=== PATIENT | female | born 1955 | race Caucasian/White ===

== ENCOUNTER 2016-04-09 18:06 | Inpatient (IN) | payer OTHER ==
[~2016-04-09] VITALS: Ht 167.6 cm; Wt 65.0 kg
[2016-04-09 18:22] VITALS: BP 174/83; PULSE 78; RESP 18; O2SAT 98
[2016-04-09] MEDS ORDERED: SODIUM CHLOR 0.9% 1000 ML INJ 1,000 ML IV SCH ×2 (18:43→20:26)
--- NOTE | 2016-04-09 18:44 | PD ---
HPI Chief Complaint: Abdominal Pain Time Seen by Provider: 18:44 Travel History International Travel<30 days: No Contact w/Intl Traveler<30days: No Traveled to known affect area: No History of Present Illness HPI 60-year-old female with a history of hypertension presents to the emergency department for evaluation of epigastric pain, nausea and vomiting. The patient states that she's had dull intermittent epigastric pain for 2 weeks. States that the pain is worse at night and wakes her up. States that over the past week she's had nausea. States that today after lunch she had 2 episodes of nonbloody nonbilious emesis. She denies any fever, chills, chest pain, shortness of breath, cough or cold symptoms, diarrhea, constipation, bloody stool, dysuria. She also complains of feeling bloated. States that she had similar symptoms a few years ago with bloating and was seen by [facility] who did EGD and colonoscopy that were unremarkable. Drinks alcohol occasionally. No other complaints. Prior abdominal surgeries include left oophorectomy. PFSH Past Medical History Genitourinary: Yes (Ovary removed , Tubal lit in the 1979) Kidney Stones: Yes (Lithotripsy 2013) Influenza Vaccination: Yes ?: Not : 2 Para: 2 Tubal Ligation: Yes Past Surgical History Section: No Social History Alcohol Use: Yes (rarely) Tobacco Use: No Substance Use: No Allergies-Medications (Allergen,Severity, Reaction): Coded Allergies: No Known Allergies (Unverified , 04/09/16) Reported Meds & Prescriptions Reported Meds & Active Scripts Active Review of Systems Except as stated in HPI: all other systems reviewed are Neg Physical Exam Narrative GENERAL: Well-nourished and well-developed pleasant patient in no acute distress who is nontoxic appearing. SKIN: Warm and dry. HEAD: Normocephalic and atraumatic. EYES: No injection, drainage, or hyphema noted. PERRLA. EOMI. ENT: No nasal drainage noted. Oropharynx is clear. NECK: Supple and the trachea is midline. CARDIOVASCULAR: Regular rate and rhythm. RESPIRATORY: Breath sounds are equal bilaterally with no accessory muscle use, wheezing, rhonchi, or crackles. GASTROINTESTINAL: Mild epigastric tenderness to palpation. Negative Smith's sign. Negative McBurney's point. No rebound tenderness or guarding. Abdomen is soft and nondistended. MUSCULOSKELETAL: No obvious deformities, swelling, cyanosis, or ecchymosis is present throughout the upper and lower extremities. Patient has full range of motion without any signs of neurovascular compromise. NEUROLOGICAL: Awake, alert, and oriented. Normal speech and gait. Cranial nerves are grossly intact. Data Data Last Documented VS Vital Signs Date Time Temp Pulse Resp B/P Pulse Ox O2 Delivery O2 Flow Rate FiO2 04/09/16 20:22 79 18 154/80 94 Room Air Orders Complete Blood Count With Diff (04/09/16 18:43) Comprehensive Metabolic Panel (04/09/16 18:43) Lipase (04/09/16 18:43) Urinalysis - C+S If Indicated (04/09/16 18:43) Us Abdomen Gallbladder (04/09/16 ) Iv Access Insert/Monitor (04/09/16 18:43) Ecg Monitoring (04/09/16 18:43) Oximetry (04/09/16 18:43) Ondansetron Inj (Zofran Inj) (04/09/16 18:45) Sodium Chlor 0.9% 1000 Ml Inj (Ns 1000 M (04/09/16 18:43) Sodium Chloride 0.9% Flush (Ns Flush) (04/09/16 18:45) Electrocardiogram (04/09/16 18:43) Famotidine Inj (Pepcid Inj) (04/09/16 18:45) Urine Culture (04/09/16 19:00) Ct Abd/Pel W Iv Contrast(Rout) (04/09/16 20:26) Sodium Chlor 0.9% 1000 Ml Inj (Ns 1000 M (04/09/16 20:26) Ampicillin-Sulbactam Inj (Unasyn Inj) (04/09/16 20:30) Admit Order (Ed Use Only) (04/09/16 20:44) Labs Laboratory Tests Test 04/09/16 19:00 White Blood Count 6.1 TH/MM3 Red Blood Count 4.46 MIL/MM3 Hemoglobin 13.9 GM/DL Hematocrit 40.8 % Mean Corpuscular Volume 91.4 FL Mean Corpuscular Hemoglobin 31.2 PG Mean Corpuscular Hemoglobin 34.1 % Concent Red Cell Distribution Width 13.5 % Platelet Count 283 TH/MM3 Mean Platelet Volume 9.4 FL Neutrophils (%) (Auto) 60.7 % Lymphocytes (%) (Auto) 31.7 % Monocytes (%) (Auto) 6.4 % Eosinophils (%) (Auto) 0.6 % Basophils (%) (Auto) 0.6 % Neutrophils # (Auto) 3.7 TH/MM3 Lymphocytes # (Auto) 1.9 TH/MM3 Monocytes # (Auto) 0.4 TH/MM3 Eosinophils # (Auto) 0.0 TH/MM3 Basophils # (Auto) 0.0 TH/MM3 CBC Comment DIFF FINAL Differential Comment Urine Color YELLOW Urine Turbidity HAZY Urine pH 5.0 Urine Specific Orange 1.020 Urine Protein TRACE mg/dL Urine Glucose (UA) NEG mg/dL Urine Ketones NEG mg/dL Urine Occult Blood MOD Urine Nitrite POS Urine Bilirubin NEGATIVE Urine Leukocyte Esterase LARGE Urine RBC 6 /hpf Urine WBC 101 /hpf Urine Squamous Epithelial 18 /hpf Cells Urine Bacteria RARE /hpf Urine Mucus FEW /lpf Microscopic Urinalysis Comment CULTURE INDICATED Sodium Level 141 MEQ/L Potassium Level 3.6 MEQ/L Chloride Level 107 MEQ/L Carbon Dioxide Level 24.6 MEQ/L Anion Gap 9 MEQ/L Blood Urea Nitrogen 14 MG/DL Creatinine 0.77 MG/DL Estimat Glomerular Filtration 76 ML/MIN Rate Random Glucose 96 MG/DL Calcium Level 8.6 MG/DL Total Bilirubin 2.7 MG/DL Aspartate Amino Transf 318 U/L (AST/SGOT) Alanine Aminotransferase 497 U/L (ALT/SGPT) Alkaline Phosphatase 760 U/L Total Protein 7.0 GM/DL Albumin 3.6 GM/DL Triglycerides Level 58 MG/DL Lipase 6053 U/L [facility] Medical Decision Making Medical Screen Exam Complete: Yes Emergency Medical Condition: Yes Differential Diagnosis Gastritis versus PUD versus GERD versus cholelithiasis versus cholecystitis versus pancreatitis Narrative Course 60-year-old female presents to the emergency department for evaluation of epigastric pain, nausea, vomiting and bloating. Patient is afebrile, vital signs are stable. She has some mild epigastric tenderness to palpation but no peritoneal signs. IV access is obtained, labs are been drawn and sent. Gallbladder ultrasound has been ordered and is pending. Patient is administered IV fluids, Zofran and Pepcid. EKG shows sinus rhythm 76 bpm, no ST elevations or depressions. CBC is unremarkable. CMP shows elevated total bilirubin of 2.7 with elevated LFTs. Lipase is elevated at 6503. Urinalysis is positive for moderate occult blood, nitrites, large leukocyte esterase, 6 red blood cells, 101 white blood cells, rare bacteria, few mucus. This consistent with urinary tract infection. Ultrasound shows mild pancreatic and common bile duct dilation with gallbladder sludge without wall thickening or pericholecystic fluid. CT of the abdomen and pelvis with IV contrast shows 2.8 cm mass in the head of the pancreas with associated dilation of the pancreatic duct, intrahepatic biliary tree and common bile duct. This is concerning for pancreatic carcinoma and total proven otherwise. Patient has remained stable and without complaint. My attending physician Dr. Chris and I did discuss all results with the patient. She will be admitted for further evaluation of this mass. Physician Communication Physician Communication I spoke with Matheus CASTRO for [facility] who agrees to admit the patient to Dr. Meyer's service. Diagnosis Primary Impression: Mass of pancreas Additional Impression: Nausea & vomiting Qualified Code: R11.2 - Non-intractable vomiting with nausea, unspecified vomiting type Admitting Information Admitting Physician Requests: Admit Smita Green Apr 09, 2016 18:44
[2016-04-09] MEDS ORDERED: SODIUM CHLORIDE 0.9% FLUSH 5 ML FLUSH IVF PRN (18:45)
[2016-04-09] MEDS ORDERED: FAMOTIDINE 20 MG/2 ML VIAL IV PUSH ONE (18:45)
[2016-04-09] MEDS ORDERED: ONDANSETRON HCL 4 MG/2 ML VIAL IVP ONE (18:45)
[2016-04-09 19:20] LABS: AUTOMATED NEUTROPHIL # 3.7 TH/MM3 (1.8-7.7); BACTERIA, URINE RARE /hpf; BASOPHIL % 0.6 % (0.0-2.0); COMMENT (UR) CULTURE INDICATED; CULTURE IF INDICATED CULTURE INDICATED; EOSINOPHIL % 0.6 % (0.0-4.0); HEMATOCRIT 40.8 % (35.0-46.0); HEMO FLAGS DIFF FINAL; LYMPH % 31.7 % (9.0-44.0); LYMPHOCYTE # 1.9 TH/MM3 (1.0-4.8); MEAN CELL VOLUME 91.4 FL (80.0-100.0); MEAN CORPUSCULAR HEMOGLOBIN 31.2 PG (27.0-34.0); MEAN CORPUSCULAR HGB CONC 34.1 % (32.0-36.0); MONO % 6.4 % (0.0-8.0); MUCUS URINE FEW /lpf (OCC); NEUT % 60.7 % (16.0-70.0); PLATELET COUNT 283 TH/MM3 (150-450); RED BLOOD COUNT 4.46 MIL/MM3 (4.00-5.30); RED CELL DISTRIBUTION WIDTH 13.5 % (11.6-17.2); SQUAMOUS EPITHELIAL CELL URINE 18 /hpf (0-5); WHITE BLOOD COUNT 6.1 TH/MM3 (4.0-11.0)
[2016-04-09 19:21] LABS: URINE COLOR YELLOW (YELLW/STRAW)
[2016-04-09 19:22] LABS: GLUCOSE,URINE NEG (NEG); KETONE, URINE NEG (NEG)
[2016-04-09 19:23] LABS: BLOOD, URINE MOD (NEG); NITRITE,URINE POS (NEG)
--- NOTE | 2016-04-09 19:46 | RADRPT ---
EXAM DATE/TIME: 04/09/2016 19:05 [facility] COMPARISON: No previous studies available for comparison. INDICATIONS : Right upper quadrant pain. MEDICAL HISTORY : . SURGICAL HISTORY : Tubal ligation. Lithotripsy. Oophorectomy. ENCOUNTER: Initial ACUITY: 2 weeks PAIN SCORE: 2/10 LOCATION: Right upper quadrant MEASUREMENTS: LIVER: 16.1 cm length COMMON DUCT: 8 mm RIGHT KIDNEY: 10.2 x 5.9 x 4.6 cm FINDINGS: LIVER: Normal echotexture without focal lesion or ductal dilatation. COMMON DUCT: No intraluminal mass or stone visualized. GALLBLADDER: The gallbladder is filled with sludge. Wall thickness upper limits normal at 2.9 mm. No pericholecyst ic fluid. Negative sonographic Smith's sign. PANCREAS: Mild prominence of the pancreatic duct up to 4.3 mm. RIGHT KIDNEY: No evidence of hydronephrosis, stone, or mass. CONCLUSION: 1. Mild pancreatic and common bile duct dilatation. 2. Gallbladder sludge without wall thickening or pericholecystic fluid. Yemi Daley MD on April 09, 2016 at 19:43 Board Certified Radiologist. This report was verified electronically.
[2016-04-09 19:52] VITALS: BP 163/79; PULSE 80; RESP 18; O2SAT 95
[2016-04-09 20:10] LABS: ALKALINE PHOSPHATASE 760 U/L (45-117); ALT (GPT) 497 U/L (10-53); ANION GAP 9 MEQ/L (5-15); AST (GOT) 318 U/L (15-37); BICARBONATE 24.6 MEQ/L (21.0-32.0); BLOOD UREA NITROGEN 14 MG/DL (7-18); CHLORIDE 107 MEQ/L (98-107); GLOMERULAR FILTRATION RATE 76 ML/MIN (>89); POTASSIUM 3.6 MEQ/L (3.5-5.1); SODIUM (NA) 141 MEQ/L (136-145); TOTAL BILIRUBIN ADULT 2.7 MG/DL (0.2-1.0)
[2016-04-09 20:22] VITALS: BP 154/80; PULSE 79; RESP 18; O2SAT 94
[2016-04-09] MEDS ORDERED: AMPICILLIN-SULBACTAM INJ 3 GM in SODIUM CHLORIDE 0.9% INJ 100 ML IV ONE (20:30)
[2016-04-09] MEDS ORDERED: SODIUM CHLORIDE 0.9% FLUSH 5 ML FLUSH IV PRN (20:45)
[2016-04-09] MEDS ORDERED: ONDANSETRON HCL 4 MG/2 ML VIAL IV PRN (20:45)
--- NOTE | 2016-04-09 20:45 | PD ---
Data Data Last Documented VS Vital Signs Date Time Temp Pulse Resp B/P Pulse Ox O2 Delivery O2 Flow Rate FiO2 04/09/16 20:22 79 18 154/80 94 Room Air Orders Complete Blood Count With Diff (04/09/16 18:43) Comprehensive Metabolic Panel (04/09/16 18:43) Lipase (04/09/16 18:43) Urinalysis - C+S If Indicated (04/09/16 18:43) Us Abdomen Gallbladder (04/09/16 ) Iv Access Insert/Monitor (04/09/16 18:43) Ecg Monitoring (04/09/16 18:43) Oximetry (04/09/16 18:43) Ondansetron Inj (Zofran Inj) (04/09/16 18:45) Sodium Chlor 0.9% 1000 Ml Inj (Ns 1000 M (04/09/16 18:43) Sodium Chloride 0.9% Flush (Ns Flush) (04/09/16 18:45) Electrocardiogram (04/09/16 18:43) Famotidine Inj (Pepcid Inj) (04/09/16 18:45) Urine Culture (04/09/16 19:00) Ct Abd/Pel W Iv Contrast(Rout) (04/09/16 20:26) Sodium Chlor 0.9% 1000 Ml Inj (Ns 1000 M (04/09/16 20:26) Ampicillin-Sulbactam Inj (Unasyn Inj) (04/09/16 20:30) Admit Order (Ed Use Only) (04/09/16 20:44) Labs Laboratory Tests Test 04/09/16 19:00 White Blood Count 6.1 TH/MM3 Red Blood Count 4.46 MIL/MM3 Hemoglobin 13.9 GM/DL Hematocrit 40.8 % Mean Corpuscular Volume 91.4 FL Mean Corpuscular Hemoglobin 31.2 PG Mean Corpuscular Hemoglobin 34.1 % Concent Red Cell Distribution Width 13.5 % Platelet Count 283 TH/MM3 Mean Platelet Volume 9.4 FL Neutrophils (%) (Auto) 60.7 % Lymphocytes (%) (Auto) 31.7 % Monocytes (%) (Auto) 6.4 % Eosinophils (%) (Auto) 0.6 % Basophils (%) (Auto) 0.6 % Neutrophils # (Auto) 3.7 TH/MM3 Lymphocytes # (Auto) 1.9 TH/MM3 Monocytes # (Auto) 0.4 TH/MM3 Eosinophils # (Auto) 0.0 TH/MM3 Basophils # (Auto) 0.0 TH/MM3 CBC Comment DIFF FINAL Differential Comment Urine Color YELLOW Urine Turbidity HAZY Urine pH 5.0 Urine Specific Bailey 1.020 Urine Protein TRACE mg/dL Urine Glucose (UA) NEG mg/dL Urine Ketones NEG mg/dL Urine Occult Blood MOD Urine Nitrite POS Urine Bilirubin NEGATIVE Urine Leukocyte Esterase LARGE Urine RBC 6 /hpf Urine WBC 101 /hpf Urine Squamous Epithelial 18 /hpf Cells Urine Bacteria RARE /hpf Urine Mucus FEW /lpf Microscopic Urinalysis Comment CULTURE INDICATED Sodium Level 141 MEQ/L Potassium Level 3.6 MEQ/L Chloride Level 107 MEQ/L Carbon Dioxide Level 24.6 MEQ/L Anion Gap 9 MEQ/L Blood Urea Nitrogen 14 MG/DL Creatinine 0.77 MG/DL Estimat Glomerular Filtration 76 ML/MIN Rate Random Glucose 96 MG/DL Calcium Level 8.6 MG/DL Total Bilirubin 2.7 MG/DL Aspartate Amino Transf 318 U/L (AST/SGOT) Alanine Aminotransferase 497 U/L (ALT/SGPT) Alkaline Phosphatase 760 U/L Total Protein 7.0 GM/DL Albumin 3.6 GM/DL Triglycerides Level 58 MG/DL Lipase 6053 U/L MDM Supervised Visit with [facility]: Yes Interpretation(s) EKG shows sinus rhythm at a rate of 76, normal intervals and no concerning ST T changes. This normal EKG. Narrative Course I, Dr. Chris, have reviewed the advance practice practitioner's documentation and am in agreement, met with the patient face to face, made the diagnosis, and the medical decision making was done by me. *My assessment and Findings: Patient seen in by me in addition to Nathalie CASTRO. Patient 6-year-old female presents with epigastric pain. She feels very comfortable on my initial evaluation states her pain is growing. She has had some nausea and vomiting. She had an ultrasound of her right upper quadrant which suggest obstructive pathology to her pancreatitis and I recommended that the patient have a CAT scan to rule out obstructive mass. Unfortunately the patient does have a 2.5 cm mass at the head of her pancreas could represent pancreatic cancer. No obvious lymphadenopathy seen by me. I did deliver the news to the patient and she is initially accepting. Patient was discussed with Matheus CASTRO of the admitting service. Diagnosis Primary Impression: Pancreatitis Qualified Code: K85.10 - Acute biliary pancreatitis without infection or necrosis Additional Impression: Pancreatic mass Admitting Information Admitting Physician Requests: Admit Condition: Stable Alberto Chris MD Apr 09, 2016 20:45
[2016-04-09] MEDS ORDERED: IOHEXOL 350 MG/ML 10 ML VIAL (for RAD DIAG) IV ONE (20:57)
[2016-04-09] MEDS ORDERED: AMPICILLIN-SULBACTAM INJ 3 GM VIAL IM SCH (21:00)
[2016-04-09] MEDS: SODIUM CHLORIDE 0.9% FLUSH 5 ML FLUSH IV SCH (21:00)
[2016-04-09] MEDS: FAMOTIDINE 20 MG/2 ML VIAL IV PUSH SCH (21:00)
[2016-04-09] MEDS ORDERED: MORPHINE SULFATE 4 MG/ML INJ IV PRN ×2 (21:00)
[2016-04-09] MEDS: ENOXAPARIN SODIUM 40 MG/0.4 ML SYRINGE SQ SCH (21:13)
--- NOTE | 2016-04-09 21:13 | RADRPT ---
EXAM DATE/TIME: 04/09/2016 20:52 [facility] COMPARISON: US ABDOMEN - GALLBLADDER, April 09, 2016, 19:05. INDICATIONS : Epigastric pain radiating to back with nausea, vomiting and diarrhea. IV CONTRAST: 95 cc Omnipaque 350 (iohexol) IV ORAL CONTRAST: No oral contrast ingested. RADIATION DOSE: 5.86 CTDIvol (mGy) MEDICAL HISTORY : Renal calculi. SURGICAL HISTORY : Tubal ligation. Lithotripsy. ENCOUNTER: Initial ACUITY: 3 weeks PAIN SCALE: 6/10 LOCATION: medial abdomen TECHNIQUE: Volumetric scanning of the abdomen and pelvis was performed. Using automated exposure control and ad justment of the mA and/or kV according to patient size, radiation dose was kept as low as reasonably achievable to obtain optimal diagnostic quality images. FINDINGS: Bilateral breast implants. The gallbladder is mildly distended and there is prominence of the intrahe patic and extrahepatic ducts, common duct measuring up to 9.3 mm. Pancreatic duct is mildly prominent up to 3.5 mm. There is a heterogeneous enhancing soft tissue mass measuring 2.8 x 2.1 cm in transver se and AP dimension on image 31 at the head of the pancreas. This is best seen on axial image 31. The spleen, left kidney, bilateral adrenal glands are normal. There is a nonobstructing calculus upper p ole right kidney no 4.7 mm on image 18. Mild scarring right mid pole and lower pole kidney. Atheroscl erotic calcifications of the aorta are present. No aneurysm. Urinary bladder, uterus and adnexal huey ons are unremarkable. There is diverticulosis of the sigmoid colon without diverticulitis. Stomach un remarkable. There is no lymphadenopathy. The osseous structures are intact. Lung bases are clear. CONCLUSION: 1. 2.8 cm mass at the head of the pancreas with associated dilatation of the pancreatic duct, intrahe patic biliary tree and common bile duct. This is concerning for pancreatic carcinoma until proven oth erwise. 2. Nonobstructing right upper pole renal calculus. 3. Diverticulosis without diverticulitis. Yemi Daley MD on April 09, 2016 at 21:08 Board Certified Radiologist. This report was verified electronically.
[2016-04-09 21:21] VITALS: BP 154/80; PULSE 91; RESP 18; O2SAT 95
[2016-04-09] MEDS ORDERED: PROMETHAZINE INJ 25 MG/ML VIAL IM ONE (21:30)
[2016-04-09 22:19] VITALS: BP 170/81
[2016-04-10] VITALS: BP 137/64; PULSE 83; TEMP 98.3; O2SAT 93
[2016-04-10] MEDS: AMPICILLIN/SULBAC 3 GM/NS 100 ML IV SCH ×4 (03:35→09:23)
[2016-04-10 04:16] VITALS: BP 135/71; PULSE 66; O2SAT 95
[2016-04-10 05:43] LABS: BICARBONATE 23.6 MEQ/L (21.0-32.0); POTASSIUM 4.1 MEQ/L (3.5-5.1)
[2016-04-10 07:48] VITALS: BP 141/75; PULSE 72; RESP 18; TEMP 98.5; O2SAT 96
--- NOTE | 2016-04-10 07:55 | HHI.HP ---
HPI Service [facility] Primary Care Physician Curtis Santana MD Admission Diagnosis Acute Nonalcoholic Pancreatitis Diagnoses: Chief Complaint: abd. pain, n/v (Yvonne Sepulveda) Travel History International Travel<30 Days: No Contact w/Intl Traveler <30 Da: No Traveled to Known Affected Are: No (Yvonne Sepulveda) History of Present Illness This is a pleasant 60-year-old female who is generally in good health, history of hypertension. Patient presented to the emergency room for evaluation of epigastric pain, nausea vomiting. According to the patient, she's had intermittent epigastric discomfort that is dull and nagging for the last 3 weeks. Over the last couple days she's had nausea and vomiting after meals, sometimes it happens after 1 hour. Denies any fever, no chills. No hematemesis. Bowel movements have been regular, no blood has been noted. Has been trying to lose weight on purpose. She denies any other symptoms, no chest pain, no shortness of breath. She has seen gastroenterology in the past for bloating and had EGD and colonoscopy per Dr. Heath that was unremarkable, possibly some diverticulosis. Does not drink any excessive alcohol. Had prior left oophorectomy. Patient was evaluated in the emergency room, she was noted with elevated LFTs, AST 318, a T4 97, alkaline phosphatase and 60. Lipase was 6053. A CT of the abdomen was completed showing a 2.8 cm mass at the head of pancreas with associated dilatation of the pancreatic duct, intrahepatic biliary tree and common bile duct. This concerning for pancreatic carcinoma. There was also nonobstructive right upper pole renal calculus. Last Impressions Abdomen/Pelvis CT 04/09/162025 Signed Impressions: Service Date/Time: Saturday, April 09, 2016 20:52 - CONCLUSION: 1. 2.8 cm mass at the head of the pancreas with associated dilatation of the pancreatic duct, intrahepatic biliary tree and common bile duct. This is concerning for pancreatic carcinoma until proven otherwise. 2. Nonobstructing right upper pole renal calculus. 3. Diverticulosis without diverticulitis. Yemi Daley MD Gall Bladder Ultrasound 04/09/16 0000 Signed Impressions: Service Date/Time: Saturday, April 09, 2016 19:05 - CONCLUSION: 1. Mild pancreatic and common bile duct dilatation. 2. Gallbladder sludge without wall thickening or pericholecystic fluid. Yemi Daley MD Was also noted positive for UTI. Patient was given empiric antibiotics. Request was made for admission. Patient indicates abdominal discomfort is improved since admission. No further nausea vomiting. Patient denies any history of malignancy on her family. 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 Patient is admitted for further evaluation and treatment. (Yvonne Sepulveda) Review of Systems Constitutional: COMPLAINS OF: Change in appetite, DENIES: Diaphoretic episodes , Fatigue, Fever, Weight gain, Weight loss, Chills, Dizziness, Night Sweats Endocrine: DENIES: Abnorml menstrual pattern, Heat/cold intolerance, Polydipsia , Polyuria, Polyphagia Eyes: DENIES: Blurred vision, Diplopia, Eye inflammation, Eye pain, Vision loss , Photosensitivity, Double Vision Ears, nose, mouth, throat: DENIES: Tinnitus, Hearing loss, Vertigo, Nasal discharge, Oral lesions, Throat pain, Hoarseness, Ear Pain, Running Nose, Epistaxis, Sinus Pain, Toothache, Odynophagia Respiratory: DENIES: Apneas, Cough, Snoring, Wheezing, Hemoptysis, Sputum production, Shortness of breath Cardiovascular: DENIES: Chest pain, Palpitations, Syncope, Dyspnea on Exertion , PND, Lower Extremity Edema, Orthopnea, Claudication Gastrointestinal: COMPLAINS OF: Abdominal pain, Nausea, Vomiting, DENIES: Black stools, Bloody stools, Constipation, Diarrhea, Difficulty Swallowing, Anorexia Genitourinary: DENIES: Abnormal vaginal bleeding, Dysmenorrhea, Dyspareunia, Sexual dysfunction, Urinary frequency, Urinary incontinence, Urgency, Hematuria , Dysuria, Nocturia, Vaginal discharge Musculoskeletal: DENIES: Joint pain, Muscle aches, Stiffness, Joint Swelling, Back pain, Neck pain Integumentary: DENIES: Abnormal pigmentation, Pruritus, Rash, Nail changes, Breast masses, Breast skin changes, Nipple discharge Hematologic/lymphatic: DENIES: Bruising, Lymphadenopathy Immunologic/allergic: DENIES: Eczema, Urticaria Neurologic: DENIES: Abnormal gait, Headache, Localized weakness, Paresthesias, Seizures, Speech Problems, Tremor, Poor Balance Psychiatric: DENIES: Anxiety, Confusion, Mood changes, Depression, Hallucinations, Agitation, Suicidal Ideation, Homicidal Ideation, Delusions ( Yvonne Sepulveda) Past Family Social History Past Medical History Hypertension kidney stones Past Surgical History Oophrectomy in 2014 Ovary removal 1990s Tubal ligation 1979 Reported Medications Reported Meds & Active Scripts Active (Yvnone Sepulveda) Allergies: Coded Allergies: No Known Allergies (Unverified , 04/09/16) Active Ordered Medications Inpatient Medications Ampicillin Sodium/ Sulbactam Sodium (Unasyn Inj) 3 gm Q6H IM ; Start 04/09/16 at 21:00; Stop 04/09/16 at 21:29; Status DC Ampicillin Sodium/ Sulbactam Sodium/ Sodium Chloride (Unasyn Inj/NS Inj) 100 ml @ 200 mls/hr Q6H IV Last administered on 04/10/16 03:35; Start 04/10/16 at 03: 00 Enoxaparin Sodium (Lovenox Inj) 40 mg Q24H SQ Last administered on 04/09/16 21: 13; Start 04/09/16 at 21:00 Famotidine (Pepcid Inj) 20 mg Q12H IV PUSH ; Start 04/09/16 at 21:00 Famotidine 20 mg 20 mg ONCE ONCE IV PUSH Last administered on 04/09/16 18:59; Start 04/09/16 at 18:45; Stop 04/09/16 at 18:46; Status DC IV Flush (NS Flush) 2 ml BID IV Last administered on 04/09/16 21:00; Start 04/09 at 21:00 Morphine Sulfate (Morphine Inj) 4 mg Q3H PRN IV Pain 6-10;if unable to take PO ; Start 04/09/16 at 21:00 Ondansetron HCl (Zofran Inj) 4 mg Q6H PRN IV NAUSEA OR VOMITING Last administered on 04/09/16 21:20; Start 04/09/16 at 20:45 Promethazine HCl 12.5 mg 12.5 mg ONCE ONCE IM Last administered on 04/09/16 22 :18; Start 04/09/16 at 21:30; Stop 04/09/16 at 21:32; Status DC Sodium Chloride (NS 1000 ml Inj) 1,000 ml @ 1,000 mls/hr Q1H IV Last administered on 04/09/16 21:14; Start 04/09/16 at 20:26; Stop 04/09/16 at 21:25; Status DC Family History Mother alive and well, history of arthritis Father from complication of paralysis Has a sister, alive and well Social History Patient is a nurse, 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 SKIN: No rashes, ecchymoses or lesions. Cool and dry. HEAD: Atraumatic. Normocephalic. No temporal or scalp tenderness. EYES: Pupils equal round and reactive. Extraocular motions intact. No scleral icterus. No injection or drainage. ENT: Nose without bleeding, purulent drainage or septal hematoma. Throat without erythema, tonsillar hypertrophy or exudate. Uvula midline. Airway patent. NECK: Trachea midline. No JVD or lymphadenopathy. Supple, nontender, no meningeal signs. CARDIOVASCULAR: Regular rate and rhythm without murmurs, gallops, or rubs. RESPIRATORY: Clear to auscultation. Breath sounds equal bilaterally. No wheezes , rales, or rhonchi. GASTROINTESTINAL: Abdomen soft, non-tender, nondistended. No hepato-splenomegaly , or palpable masses. No guarding. MUSCULOSKELETAL: Extremities without clubbing, cyanosis, or edema. No joint tenderness, effusion, or edema noted. No calf tenderness. Negative Homans sign bilaterally. NEUROLOGICAL: Awake and alert. Cranial nerves II through XII intact. Motor and sensory grossly within normal limits. Five out of 5 muscle strength in all muscle groups. Normal speech. Laboratory Laboratory Tests Test 04/09/16 04/10/16 19:00 04:49 White Blood Count 6.1 Red Blood Count 4.46 Hemoglobin 13.9 Hematocrit 40.8 Mean Corpuscular Volume 91.4 Mean Corpuscular Hemoglobin 31.2 Mean Corpuscular Hemoglobin 34.1 Concent Red Cell Distribution Width 13.5 Platelet Count 283 Mean Platelet Volume 9.4 Neutrophils (%) (Auto) 60.7 Lymphocytes (%) (Auto) 31.7 Monocytes (%) (Auto) 6.4 Eosinophils (%) (Auto) 0.6 Basophils (%) (Auto) 0.6 Neutrophils # (Auto) 3.7 Lymphocytes # (Auto) 1.9 Monocytes # (Auto) 0.4 Eosinophils # (Auto) 0.0 Basophils # (Auto) 0.0 CBC Comment DIFF FINAL Differential Comment Urine Color YELLOW Urine Turbidity HAZY Urine pH 5.0 Urine Specific [place] 1.020 Urine Protein TRACE Urine Glucose (UA) NEG Urine Ketones NEG Urine Occult Blood MOD Urine Nitrite POS Urine Bilirubin NEGATIVE Urine Leukocyte Esterase LARGE Urine RBC 6 Urine WBC 101 Urine Squamous Epithelial 18 Cells Urine Bacteria RARE Urine Mucus FEW Microscopic Urinalysis Comment CULTURE INDICATED Sodium Level 141 146 Potassium Level 3.6 4.1 Chloride Level 107 114 Carbon Dioxide Level 24.6 23.6 Anion Gap 9 8 Blood Urea Nitrogen 14 9 Creatinine 0.77 0.68 Estimat Glomerular Filtration 76 88 Rate Random Glucose 96 94 Calcium Level 8.6 8.2 Total Bilirubin 2.7 Aspartate Amino Transf 318 (AST/SGOT) Alanine Aminotransferase 497 (ALT/SGPT) Alkaline Phosphatase 760 Total Protein 7.0 Albumin 3.6 Triglycerides Level 58 Lipase 6053 4578 Date/Time Procedure Status Source Growth 04/09/16 19:00 Urine Culture Received Urine Clean Catch Pending (Yvonne Sepulveda) Result Diagram: 04/09/16 1900 04/10/169 Imaging Last Impressions Abdomen/Pelvis CT 04/09/162025 Signed Impressions: Service Date/Time: Saturday, April 09, 2016 20:52 - CONCLUSION: 1. 2.8 cm mass at the head of the pancreas with associated dilatation of the pancreatic duct, intrahepatic biliary tree and common bile duct. This is concerning for pancreatic carcinoma until proven otherwise. 2. Nonobstructing right upper pole renal calculus. 3. Diverticulosis without diverticulitis. Yemi Daley MD Gall Bladder Ultrasound 04/09/16 0000 Signed Impressions: Service Date/Time: Saturday, April 09, 2016 19:05 - CONCLUSION: 1. Mild pancreatic and common bile duct dilatation. 2. Gallbladder sludge without wall thickening or pericholecystic fluid. Yemi Daley MD (Yvonne Sepulveda) Assessment and Plan Problem List: (1) Pancreatic mass (2) Pancreatitis (3) Nausea & vomiting (4) UTI (urinary tract infection) (5) HTN (hypertension) (6) Elevated LFTs Assessment and Plan Admit to Dr. Meyer 60-year-old female admitted with 3 weeks of epigastric discomfort associated with nausea vomiting, CT findings of a 2.8 cm pancreatic mass. Also with findings of pancreatitis, elevated lipase as well as elevated liver enzymes. Noted with dilatation of pancreatic duct, intrahepatic biliary tree and couple bile duct. No ETOH abuse Acute pancreatitis Nothing by mouth status Continue with IV fluids Pain management Repeat lipase in the morning as well as liver enzymes Consul gastroenterology for evaluation Pancreatic mass concerning for malignancy We'll wait for evaluation by gastroenterology for further workup UTI Continue with antibiotics, changed to Rocephin 1 g IV daily, follow cultures Hypertension, stable resume home medications Vasotec when necessary for systolic greater than 160 diastolic greater than 90 Home medications reviewed, initiated as indicated SCDs for DVT prophylaxis Plan of care discussed with the patient, attending and registered nurse. Further management of the patient will be dependent on the hospital course This patient was seen by myself and Dr. Meyer, this H&P is written on his behalf (Yvonne Sepulveda) Assessment and Plan seen, examined by myself, Dr Meyer, today Discussed with patient, The patient has a 2.8 cm mass in the head of the pancreas, gastroenterology is following Discussed with mid level provider The exam, history, and the medical decision-making described in the above note were completed with the assistance of the mid-level provider. I reviewed the findings presented. I attest that I had a [id number] encounter with the patient on the same day, and personally performed and documented my assessment and findings in the medical record. (Luis Angel Meyer MD) Physician Certification 2 Midnight Certification Type: Admission for Inpatient Services Order for Inpatient Services The services are ordered in accordance with Medicare regulations or non- Medicare payer requirements, as applicable. In the case of services not specified as inpatient-only, they are appropriately provided as inpatient services in accordance with the 2-midnight benchmark. Estimated LOS (days): 2 2 days is the estimated time the patient will need to remain in the hospital, assuming treatment plan goals are met and no additional complications. Post-Hospital Plan: Home (Yvonne Sepulveda) Problem Qualifiers (1) Pancreatitis: Qualified Code: K85.10 - Acute biliary pancreatitis without infection or necrosis (2) Nausea & vomiting: Qualified Code: R11.2 - Non-intractable vomiting with nausea, unspecified vomiting type (3) UTI (urinary tract infection): Qualified Code: N39.0 - Urinary tract infection without hematuria, site unspecified (4) HTN (hypertension): Qualified Code: I10 - Essential hypertension Yvonne Sepulveda Apr 10, 2016 07:55 Luis Angel Meyer MD Apr 10, 2016 13:55
[2016-04-10] MEDS: SODIUM CHLORIDE 0.9% FLUSH 5 ML FLUSH IV SCH ×2 (09:24→21:29)
[2016-04-10] MEDS ORDERED: LORazepam 0.5 MG TAB PO PRN (10:00)
[2016-04-10 10:17] LABS: INDIRECT BILIRUBIN 0.9 MG/DL (0.0-0.8); TOTAL BILIRUBIN ADULT 2.7 MG/DL (0.2-1.0)
[2016-04-10] MEDS: FAMOTIDINE 20 MG/2 ML VIAL IV PUSH SCH ×2 (11:00→21:30)
[2016-04-10 11:24] VITALS: BP 145/80; PULSE 87; RESP 18; TEMP 98; O2SAT 95
[2016-04-10] MEDS ORDERED: ENALAPRILAT 1.25 MG/ML VIAL IV PUSH PRN (11:30)
[2016-04-10] MEDS: LOSARTAN 50 MG TAB PO SCH (12:32)
[2016-04-10] MEDS: SODIUM CHLOR 0.9% 1000 ML INJ 1,000 ML IV SCH ×2 (12:34→21:03)
--- NOTE | 2016-04-10 13:48 | PD.CONS ---
HPI History of Present Illness This is a 60 year old female patient who came to the ER for evaluation abdominal pain with associated nausea, vomiting. She reports that she has had a dull intermittent discomfort in her epigastric area that is aggravated by po intake with associated nausea and vomiting of nonbloody emesis. She reports that this has been waking her up at night at times. She denies any fever or chills. She has lost 13 lbs over the past 5 months, but states that this was planned and with diet and exercise. She denies any jaundice. She does have associated bloating. She denies any history of pancreatitis. She rarely drinks alcohol and has not had any recently. She denies any new medications other than a digestive enzyme that she recently started after her symptoms began. However, she has not had any improvement with this. She denies any family hx of cancer. PFSH Past Medical History HTN Past Surgical History Kidney stones Lithotripsy Oophorectomy EGD/Colonoscopy Coded Allergies: No Known Allergies (Unverified , 04/09/16) Medications Allergies Coded Allergies Type Severity Reaction Last Updated Verified No Known Allergies 04/09/16 No Active Scripts Medications Dose Route/Sig Days Date Category Family History Denies any family hx of cancer. Social History Denies the use of tobacco, Rare ETOH. Review of Systems Constitutional: COMPLAINS OF: Fatigue, Weight loss (planned with diet and exercise.) Respiratory: DENIES: Cough Cardiovascular: DENIES: Chest pain Gastrointestinal: COMPLAINS OF: Abdominal pain, Nausea, Vomiting, Swelling of Abdomen, DENIES: Black stools, Bloody stools, Constipation, Diarrhea Musculoskeletal: DENIES: Back pain Integumentary: DENIES: Abnormal pigmentation, Jaundice Hematologic/lymphatic: DENIES: Bruising Neurologic: DENIES: Headache Psychiatric: DENIES: Anxiety, Confusion, Mood changes, Depression, Agitation, Suicidal Ideation GI Exam Vitals I&O Vital Signs Date Time Temp Pulse Resp B/P Pulse Ox O2 Delivery O2 Flow Rate FiO2 04/10/16 11:24 98.0 87 18 145/80 95 04/10/16 07:48 98.5 72 18 141/75 96 04/10/16 04:16 66 135/71 95 04/10/16 00:00 98.3 83 137/64 93 04/09/16 22:19 90 18 170/81 95 04/09/16 21:21 91 18 154/80 95 3/5/17 20:22 79 18 154/80 94 Room Air 04/09/16 19:52 80 18 163/79 95 Room Air 04/09/16 18:24 18 04/09/16 18:22 78 18 174/83 98 Room Air Imaging Last Impressions Abdomen/Pelvis CT 04/09/162025 Signed Impressions: Service Date/Time: Saturday, April 09, 2016 20:52 - CONCLUSION: 1. 2.8 cm mass at the head of the pancreas with associated dilatation of the pancreatic duct, intrahepatic biliary tree and common bile duct. This is concerning for pancreatic carcinoma until proven otherwise. 2. Nonobstructing right upper pole renal calculus. 3. Diverticulosis without diverticulitis. Yemi Dlaey MD Gall Bladder Ultrasound 04/09/16 0000 Signed Impressions: Service Date/Time: Saturday, April 09, 2016 19:05 - CONCLUSION: 1. Mild pancreatic and common bile duct dilatation. 2. Gallbladder sludge without wall thickening or pericholecystic fluid. Yemi Daley MD Laboratory Test 04/09/16 04/10/16 04/10/16 19:00 04:49 10:55 White Blood Count 6.1 TH/MM3 Red Blood Count 4.46 MIL/MM3 Hemoglobin 13.9 GM/DL Hematocrit 40.8 % Mean Corpuscular Volume 91.4 FL Mean Corpuscular Hemoglobin 31.2 PG Mean Corpuscular Hemoglobin 34.1 % Concent Red Cell Distribution Width 13.5 % Platelet Count 283 TH/MM3 Mean Platelet Volume 9.4 FL Neutrophils (%) (Auto) 60.7 % Lymphocytes (%) (Auto) 31.7 % Monocytes (%) (Auto) 6.4 % Eosinophils (%) (Auto) 0.6 % Basophils (%) (Auto) 0.6 % Neutrophils # (Auto) 3.7 TH/MM3 Lymphocytes # (Auto) 1.9 TH/MM3 Monocytes # (Auto) 0.4 TH/MM3 Eosinophils # (Auto) 0.0 TH/MM3 Basophils # (Auto) 0.0 TH/MM3 CBC Comment DIFF FINAL Differential Comment Urine Color YELLOW Urine Turbidity HAZY Urine pH 5.0 Urine Specific [place] 1.020 Urine Protein TRACE mg/dL Urine Glucose (UA) NEG mg/dL Urine Ketones NEG mg/dL Urine Occult Blood MOD Urine Nitrite POS Urine Bilirubin NEGATIVE Urine Leukocyte Esterase LARGE Urine RBC 6 /hpf Urine WBC 101 /hpf Urine Squamous Epithelial 18 /hpf Cells Urine Bacteria RARE /hpf Urine Mucus FEW /lpf Microscopic Urinalysis Comment CULTURE INDICATED Sodium Level 141 MEQ/L 146 MEQ/L Potassium Level 3.6 MEQ/L 4.1 MEQ/L Chloride Level 107 MEQ/L 114 MEQ/L Carbon Dioxide Level 24.6 MEQ/L 23.6 MEQ/L Anion Gap 9 MEQ/L 8 MEQ/L Blood Urea Nitrogen 14 MG/DL 9 MG/DL Creatinine 0.77 MG/DL 0.68 MG/DL Estimat Glomerular Filtration 76 ML/MIN 88 ML/MIN Rate Random Glucose 96 MG/DL 94 MG/DL Calcium Level 8.6 MG/DL 8.2 MG/DL Total Bilirubin 2.7 MG/DL 2.7 MG/DL Aspartate Amino Transf 318 U/L 230 U/L (AST/SGOT) Alanine Aminotransferase 497 U/L 408 U/L (ALT/SGPT) Alkaline Phosphatase 760 U/L 658 U/L Total Protein 7.0 GM/DL 5.9 GM/DL Albumin 3.6 GM/DL 3.1 GM/DL Triglycerides Level 58 MG/DL Lipase 6053 U/L 4578 U/L Direct Bilirubin 1.8 MG/DL Indirect Bilirubin 0.9 MG/DL CA 19-9 Antigen 36.8 U/ML Date/Time Procedure Status Source Growth 04/09/16 19:00 Urine Culture - Preliminary Resulted Urine Clean Catch RESULTS PENDING Physical Examination HEENT: Normocephalic; atraumatic; no jaundice. CHEST: CTA CARDIAC: RRR ABDOMEN: Soft, nondistended, mild epigastric tenderness; no hepatosplenomegaly ; bowel sounds are present in all four quadrants. EXTREMITIES: No clubbing, cyanosis, or edema. SKIN: Normal; no rash; no jaundice. BASEBALL HAND SEWER: No focal deficits; alert and oriented times three. Assessment and Plan Plan ASSESSMENT: - Acute pancreatitis, 1st episode. Abdomen/Pelvis CT (04/09/16)----> 1. 2.8 cm mass at the head of the pancreas with associated dilatation of the pancreatic duct, intrahepatic biliary tree and common bile duct. This is concerning for pancreatic carcinoma until proven otherwise. 2. Nonobstructing right upper pole renal calculus. 3. Diverticulosis without diverticulitis. Gall Bladder Ultrasound (04/09/16)---> 1. Mild pancreatic and common bile duct dilatation. 2. Gallbladder sludge without wall thickening or pericholecystic fluid. No new medications. No ETOH use. No family hx. No hx of GB issues. NPO. - Pancreatic mass. CT with 2.8 cm mass at the head of the pancreas with associated dilatation of the pancreatic duct, intrahepatic biliary tree and common bile duct, concerning for malignancy. Ca19-9 36.8. - Elevated LFTs, T. Bili 2.7, Direct 1.8, AST 230, ALT 408, Alk phosph 658 - HTN per primary PLAN: - Plan for ERCP for possible stent placement in am - Obtain consents - Clear liquids - NPO after MN - Increase IVF to 125cc/hr - Add Protonix 40mg IV daily - Will need EUS with FNA, likely Sunday - CBC, CMP, Lipase in am - Supportive care - Further recommendations to follow based on results of above - Pt seen and examined by Dr. Kennedy and myself and this note is written on his behalf Mey Jacques Apr 10, 2016 13:48
[2016-04-10 15:45] VITALS: BP 121/66; PULSE 67; RESP 18; O2SAT 96
--- NOTE | 2016-04-10 16:53 | EKG ---
Date Performed: 04/09/2016 Time Performed: 19:45:16 PTAGE: 60 years EKG: Sinus rhythm NONSPECIFIC ST SEGMENT CHANGES ABNORMAL ECG NO PREVIOUS TRACING DOCTOR: Jan Anderson Interpretating Date/Time 04/10/2016 16:53:14
[2016-04-10] MEDS: PANTOPRAZOLE SODIUM 40 MG VIAL IV PUSH SCH (17:08)
[2016-04-10 21:00] VITALS: BP 121/64; PULSE 77; RESP 18; TEMP 98.2; O2SAT 95
[2016-04-10] MEDS: ENOXAPARIN SODIUM 40 MG/0.4 ML SYRINGE SQ SCH (21:30)
[2016-04-11 00:12] VITALS: BP 113/65; PULSE 63; RESP 18; TEMP 97.7; O2SAT 95
[2016-04-11 04:12] VITALS: BP 133/70; PULSE 78; RESP 18; TEMP 97.7; O2SAT 96
[2016-04-11] MEDS: SODIUM CHLOR 0.9% 1000 ML INJ 1,000 ML IV SCH ×2 (05:03→22:20)
[2016-04-11 07:44] VITALS: BP 163/86; PULSE 78; RESP 18; TEMP 98.6; O2SAT 95
[2016-04-11 08:15] LABS: AUTOMATED NEUTROPHIL # 3.5 TH/MM3 (1.8-7.7); BASOPHIL # 0.1 TH/MM3 (0-0.2); BASOPHIL % 1.1 % (0.0-2.0); EOSINOPHIL # 0.1 TH/MM3 (0-0.4); HEMATOCRIT 39.1 % (35.0-46.0); HEMO FLAGS DIFF FINAL; LYMPH % 32.8 % (9.0-44.0); MEAN CELL VOLUME 91.3 FL (80.0-100.0); MEAN CORPUSCULAR HEMOGLOBIN 30.2 PG (27.0-34.0); MEAN CORPUSCULAR HGB CONC 33.1 % (32.0-36.0); MONO % 7.2 % (0.0-8.0); NEUT % 57.9 % (16.0-70.0); PLATELET COUNT 246 TH/MM3 (150-450); RED BLOOD COUNT 4.28 MIL/MM3 (4.00-5.30); RED CELL DISTRIBUTION WIDTH 13.3 % (11.6-17.2)
--- NOTE | 2016-04-11 08:33 | HHI.PR ---
Subjective Subjective Remarks no abd. pain no n/v no cp no sob no diarrhea going for ERCP NPO status at bsd less anxious today Review of Systems Constitutional Constitutional Remarks 12 point ROS completed, negative except as noted above Vitals/Results Vital Signs Vital Signs Date Time Temp Pulse Resp B/P Pulse Ox O2 Delivery O2 Flow Rate FiO2 04/11/16 07:44 98.6 78 18 163/86 95 04/11/16 04:12 97.7 78 18 133/70 96 04/11/16 00:12 97.7 63 18 113/65 95 04/10/16 21:00 98.2 77 18 121/64 95 04/10/16 15:45 67 18 121/66 96 04/10/16 11:24 98.0 87 18 145/80 95 CBC/BMP: 04/11/16 0734 04/10/16 0449 Lab Results Laboratory Tests Test 04/10/16 04/11/16 10:55 07:34 CA 19-9 Antigen 36.8 U/ML White Blood Count 6.0 TH/MM3 Red Blood Count 4.28 MIL/MM3 Hemoglobin 12.9 GM/DL Hematocrit 39.1 % Mean Corpuscular Volume 91.3 FL Mean Corpuscular Hemoglobin 30.2 PG Mean Corpuscular Hemoglobin 33.1 % Concent Red Cell Distribution Width 13.3 % Platelet Count 246 TH/MM3 Mean Platelet Volume 9.0 FL Neutrophils (%) (Auto) 57.9 % Lymphocytes (%) (Auto) 32.8 % Monocytes (%) (Auto) 7.2 % Eosinophils (%) (Auto) 1.0 % Basophils (%) (Auto) 1.1 % Neutrophils # (Auto) 3.5 TH/MM3 Lymphocytes # (Auto) 2.0 TH/MM3 Monocytes # (Auto) 0.4 TH/MM3 Eosinophils # (Auto) 0.1 TH/MM3 Basophils # (Auto) 0.1 TH/MM3 CBC Comment DIFF FINAL Differential Comment Physical Exam General General Appearance: Well Developed, Well Nourished, No Acute Distress, Comfortable Eyes Eye Exam: Pupils Equal, Pupils Reactive Ears & Nose Ears & Nose Exam: Nasal Mucosa [place] Throat Throat Exam: Oral Mucosa [place] & Moist Neck Neck Exam: Neck Supple, Trachea Midline Pulmonary Resp Exam: Clear Bilaterally, No Distress Cardiology CV Exam: Regular, Good Perfusion Gastrointestinal/Abdomen GI Exam: Soft, Non-Tender, Bowel Sounds Present, Non-Distended Musculoskeletal MS Exam: Joints Intact Integumentary Skin Exam: Warm, Dry Extremeties Extremities Exam: No Edema, Pedal Pulses Palpable Neurologic Neuro Exam: Alert, Awake, Oriented, Speech Clear, Moving All Extremities, No Focal Deficits Psychiatric Psych Exam: Appropriate Responses VTE Prophylaxis VTE Prophylaxis Device: SCDs PUD Prophylasis PUD Prophylaxis: Protonix Assessment/Plan Problem List: (1) Pancreatitis (2) UTI (urinary tract infection) (3) HTN (hypertension) (4) Elevated LFTs Assessment/Plan 60-year-old female admitted with 3 weeks of epigastric discomfort associated with nausea vomiting, CT findings of a 2.8 cm pancreatic mass. Also with findings of pancreatitis, elevated lipase as well as elevated liver enzymes. Noted with dilatation of pancreatic duct, intrahepatic biliary tree and couple bile duct. No ETOH abuse Acute pancreatitis Nothing by mouth status Continue with IV fluids Pain management lab work up pending this morning Appreciate GI input, notes reviewed -Pt. going for ERCP and poss. stent placement. Will need EUS with FNA, likely Wed. -f/u after results Pancreatic mass concerning for malignancy GI following - 36.8 UTI, culture pending Continue with antibiotics, changed to Rocephin 1 g IV daily, follow cultures Hypertension, stable Continue home medications Vasotec when necessary for systolic greater than 160 diastolic greater than 90 SCDs for DVT prophylaxis PPI for GI Prophylaxis F/U on results and GI recommendations Labs pending this morning D/W RN D/W pt, D/W Dr. Meyer This patient was seen by myself and Dr. Meyer, this note is written on his behalf Problem Qualifiers (1) Pancreatitis: Qualified Code: K85.10 - Acute biliary pancreatitis without infection or necrosis (2) UTI (urinary tract infection): Qualified Code: N39.0 - Urinary tract infection without hematuria, site unspecified (3) HTN (hypertension): Qualified Code: I10 - Essential hypertension Yvonne Sepulveda Apr 11, 2016 08:33
[2016-04-11 08:46] LABS: INDIRECT BILIRUBIN 0.9 MG/DL (0.0-0.8); TOTAL BILIRUBIN ADULT 1.3 MG/DL (0.2-1.0)
[2016-04-11] MEDS: cefTRIAXone INJ 1,000 MG in SODIUM CHLORIDE 0.9% INJ 100 ML IV SCH (08:53)
[2016-04-11] MEDS: FAMOTIDINE 20 MG/2 ML VIAL IV PUSH SCH ×2 (08:53→22:07)
[2016-04-11] MEDS: LOSARTAN 50 MG TAB PO SCH (08:54)
[2016-04-11] MEDS: SODIUM CHLORIDE 0.9% FLUSH 5 ML FLUSH IV SCH ×2 (09:00→22:07)
--- NOTE | 2016-04-11 15:56 | HHI.GIFU ---
Subjective Remarks Resting in bed. Feeling much better. No fevers. Mild bloating. Objective Vitals I&O Vital Signs Date Time Temp Pulse Resp B/P Pulse Ox O2 Delivery O2 Flow Rate FiO2 04/11/16 07:44 98.6 78 18 163/86 95 04/11/16 04:12 97.7 78 18 133/70 96 04/11/16 00:12 97.7 63 18 113/65 95 04/10/16 21:00 98.2 77 18 121/64 95 Laboratory Laboratory Tests Test 04/11/16 07:34 White Blood Count 6.0 Red Blood Count 4.28 Hemoglobin 12.9 Hematocrit 39.1 Mean Corpuscular Volume 91.3 Mean Corpuscular Hemoglobin 30.2 Mean Corpuscular Hemoglobin 33.1 Concent Red Cell Distribution Width 13.3 Platelet Count 246 Mean Platelet Volume 9.0 Neutrophils (%) (Auto) 57.9 Lymphocytes (%) (Auto) 32.8 Monocytes (%) (Auto) 7.2 Eosinophils (%) (Auto) 1.0 Basophils (%) (Auto) 1.1 Neutrophils # (Auto) 3.5 Lymphocytes # (Auto) 2.0 Monocytes # (Auto) 0.4 Eosinophils # (Auto) 0.1 Basophils # (Auto) 0.1 CBC Comment DIFF FINAL Differential Comment Total Bilirubin 1.3 Direct Bilirubin 0.4 Indirect Bilirubin 0.9 Aspartate Amino Transf 93 (AST/SGOT) Alanine Aminotransferase 301 (ALT/SGPT) Alkaline Phosphatase 630 Total Protein 6.0 Albumin 3.2 Lipase 628 Date/Time Procedure Status Source Growth 04/09/16 19:00 Urine Culture - Final Complete Urine Clean Catch 10-50,000 CFU/ML MIXED GRAM POSITIVE ... Imaging Last Impressions Abdomen/Pelvis CT 04/09/162025 Signed Impressions: Service Date/Time: Saturday, April 09, 2016 20:52 - CONCLUSION: 1. 2.8 cm mass at the head of the pancreas with associated dilatation of the pancreatic duct, intrahepatic biliary tree and common bile duct. This is concerning for pancreatic carcinoma until proven otherwise. 2. Nonobstructing right upper pole renal calculus. 3. Diverticulosis without diverticulitis. Yemi Daley MD Gall Bladder Ultrasound 04/09/16 0000 Signed Impressions: Service Date/Time: Saturday, April 09, 2016 19:05 - CONCLUSION: 1. Mild pancreatic and common bile duct dilatation. 2. Gallbladder sludge without wall thickening or pericholecystic fluid. Yemi Daley MD Physical Exam HEENT: Normocephalic; atraumatic; no jaundice. CHEST: CTA CARDIAC: RRR ABDOMEN: Soft, mildly bloated, nontender; no hepatosplenomegaly; bowel sounds are present in all four quadrants. EXTREMITIES: No clubbing, cyanosis, or edema. SKIN: Normal; no rash; no jaundice. EXHIBITION CARVER: No focal deficits; alert and oriented times three. Assessment and Plan Plan ASSESSMENT: - Acute pancreatitis, 1st episode. Abdomen/Pelvis CT (04/09/16)----> 1. 2.8 cm mass at the head of the pancreas with associated dilatation of the pancreatic duct, intrahepatic biliary tree and common bile duct. This is concerning for pancreatic carcinoma until proven otherwise. 2. Nonobstructing right upper pole renal calculus. 3. Diverticulosis without diverticulitis. Gall Bladder Ultrasound (04/09/16)---> 1. Mild pancreatic and common bile duct dilatation. 2. Gallbladder sludge without wall thickening or pericholecystic fluid. No new medications. No ETOH use. No family hx. No hx of GB issues. LFTs improving. Lipase improving. Will hold off on ERCP and plan for EUS with possible FNA. - Pancreatic mass. CT with 2.8 cm mass at the head of the pancreas with associated dilatation of the pancreatic duct, intrahepatic biliary tree and common bile duct, concerning for malignancy. Ca19-9 36.8. LFTs improving. - Elevated LFTs, Improving as above. - HTN per primary PLAN: - Plan for EUS with FNA - Obtain consents - Full liquids - NPO after MN - IVF - PPI - CBC, CMP, Lipase in am - Supportive care - Further recommendations to follow based on results of above - Pt seen and examined by Dr. Kennedy and myself and this note is written on his behalf Mey Jacques Apr 11, 2016 15:56
[2016-04-11] MEDS: PANTOPRAZOLE SODIUM 40 MG VIAL IV PUSH SCH (17:51)
[2016-04-11 17:58] VITALS: BP 161/79; PULSE 69; RESP 17; TEMP 98; O2SAT 98
[2016-04-11 18:20] VITALS: BP 161/88; PULSE 80; RESP 16; TEMP 99.1; O2SAT 99
[2016-04-11 20:00] VITALS: BP_SYST 158; BP_SYST 178; BP_DIAS 96; PULSE 72; RESP 17; TEMP 97; O2SAT 95
[2016-04-11] MEDS: ENOXAPARIN SODIUM 40 MG/0.4 ML SYRINGE SQ SCH (22:06)
[2016-04-12] VITALS (7 sets, daily range): BP systolic 111–157; BP diastolic 66–79; PULSE 63–74; RESP 16–18; TEMP 95.9–98.3; O2SAT 92–98
[2016-04-12] MEDS: SODIUM CHLOR 0.9% 1000 ML INJ 1,000 ML IV SCH ×3 (05:03→20:35)
[2016-04-12 07:49] LABS: ALKALINE PHOSPHATASE 592 U/L (45-117); ALT (GPT) 276 U/L (10-53); ANION GAP 7 MEQ/L (5-15); AST (GOT) 93 U/L (15-37); BICARBONATE 27.2 MEQ/L (21.0-32.0); BLOOD UREA NITROGEN 7 MG/DL (7-18); CHLORIDE 110 MEQ/L (98-107); GLOMERULAR FILTRATION RATE 80 ML/MIN (>89); POTASSIUM 3.8 MEQ/L (3.5-5.1); SODIUM (NA) 144 MEQ/L (136-145); TOTAL BILIRUBIN ADULT 1.2 MG/DL (0.2-1.0)
[2016-04-12] MEDS: SODIUM CHLORIDE 0.9% FLUSH 5 ML FLUSH IV SCH ×2 (09:00→20:34)
[2016-04-12] MEDS: LOSARTAN 50 MG TAB PO SCH (09:28)
[2016-04-12] MEDS: cefTRIAXone INJ 1,000 MG in SODIUM CHLORIDE 0.9% INJ 100 ML IV SCH (09:28)
--- NOTE | 2016-04-12 09:50 | HHI.PR ---
Subjective Subjective Remarks ERCP with stent cancelled, numbers coming down going for EUS with FNA today NPO tolerated liquids well yesterday, no N/V no abd. distension no abd. pain no diarrhea no cp no sob no fever at bsd Review of Systems Constitutional Constitutional Remarks 12 point ROS completed, negative except as noted above Vitals/Results Intake & Output 04/11/16 04/11/16 04/12/16 15:00 23:00 07:00 Intake Total 900 ml 755 ml Output Total 0 ml Balance 900 ml 755 ml Intake Oral 800 ml IV Total 100 ml 755 ml Output Stool Total 0 ml # Voids 4 2 Vital Signs Vital Signs Date Time Temp Pulse Resp B/P Pulse Ox O2 Delivery O2 Flow Rate FiO2 04/12/16 08:00 97.7 64 16 131/75 95 04/12/16 04:00 97.7 69 18 111/66 95 04/12/16 00:00 97.8 63 17 145/79 94 04/11/16 20:00 97.0 72 17 178/96 95 04/11/16 18:20 99.1 80 16 161/88 99 04/11/16 17:58 98.0 69 17 161/79 98 CBC/BMP: 04/11/16 0734 04/12/16 0628 Lab Results Laboratory Tests Test 04/12/16 06:28 Sodium Level 144 MEQ/L Potassium Level 3.8 MEQ/L Chloride Level 110 MEQ/L Carbon Dioxide Level 27.2 MEQ/L Anion Gap 7 MEQ/L Blood Urea Nitrogen 7 MG/DL Creatinine 0.74 MG/DL Estimat Glomerular Filtration 80 ML/MIN Rate Random Glucose 107 MG/DL Calcium Level 8.3 MG/DL Total Bilirubin 1.2 MG/DL Aspartate Amino Transf 93 U/L (AST/SGOT) Alanine Aminotransferase 276 U/L (ALT/SGPT) Alkaline Phosphatase 592 U/L Total Protein 6.2 GM/DL Albumin 3.2 GM/DL Lipase 770 U/L Physical Exam General General Appearance: Well Developed, Well Nourished, No Acute Distress, Comfortable Eyes Eye Exam: Pupils Equal, Pupils Reactive Ears & Nose Ears & Nose Exam: Nasal Mucosa [place] Throat Throat Exam: Oral Mucosa [place] & Moist Neck Neck Exam: Neck Supple, Trachea Midline Pulmonary Resp Exam: Clear Bilaterally, No Distress Cardiology CV Exam: Regular, Good Perfusion Gastrointestinal/Abdomen GI Exam: Soft, Non-Tender, Bowel Sounds Present, Non-Distended Musculoskeletal MS Exam: Joints Intact Integumentary Skin Exam: Warm, Dry Extremeties Extremities Exam: No Edema, Pedal Pulses Palpable Neurologic Neuro Exam: Alert, Awake, Oriented, Speech Clear, Moving All Extremities, No Focal Deficits Psychiatric Psych Exam: Appropriate Responses VTE Prophylaxis VTE Prophylaxis Device: SCDs PUD Prophylasis PUD Prophylaxis: Protonix Assessment/Plan Problem List: (1) Pancreatitis (2) UTI (urinary tract infection) (3) HTN (hypertension) (4) Elevated LFTs Assessment/Plan 60-year-old female admitted with 3 weeks of epigastric discomfort associated with nausea vomiting, CT findings of a 2.8 cm pancreatic mass. Also with findings of pancreatitis, elevated lipase as well as elevated liver enzymes. Noted with dilatation of pancreatic duct, intrahepatic biliary tree and couple bile duct. No ETOH abuse Acute pancreatitis Nothing by mouth status Continue with IV fluids Pain management labs reviewed, LFTs coming down slowly Appreciate GI input, notes reviewed -ERCP and poss. stent placement cancelled, numbers coming down -EUS with FNA today Pancreatic mass concerning for malignancy GI following -19-9 36.8 UTI, culture results noted Continue with antibiotics, changed to Rocephin 1 g IV daily, culture mixed GPC Hypertension, stable Continue home medications Vasotec when necessary for systolic greater than 160 diastolic greater than 90 SCDs for DVT prophylaxis PPI for GI Prophylaxis F/U on results and GI recommendations Labs and symptoms improving continue with above tx D/W RN D/W pt, D/W Dr. Meyer This patient was seen by myself and Dr. Meyer, this note is written on his behalf Problem Qualifiers (1) Pancreatitis: Qualified Code: K85.10 - Acute biliary pancreatitis without infection or necrosis (2) UTI (urinary tract infection): Qualified Code: N39.0 - Urinary tract infection without hematuria, site unspecified (3) HTN (hypertension): Qualified Code: I10 - Essential hypertension Yvonne Sepulveda Apr 12, 2016 09:50
[2016-04-12] MEDS ORDERED: ONDANSETRON HCL 4 MG/2 ML VIAL IV PUSH ONE (12:00)
[2016-04-12] MEDS: FAMOTIDINE 20 MG/2 ML VIAL IV PUSH SCH ×2 (12:13→20:34)
[2016-04-12] MEDS ORDERED: PROPOFOL 200 MG/20 ML AMP IV ONE (13:47)
--- NOTE | 2016-04-12 14:53 | PD.PROCEDR ---
GI Procedure REFERRING PHYSICIAN Dr. Meyer PROCEDURE PERFORMED EGD followed by EUS with fine-needle aspiration INDICATION FOR PROCEDURE Pancreatitis with pancreatic head mass PROCEDURE: The procedure, risks and benefits were discussed with Ms. Brennan and informed consent was obtained. Anesthesia sedated her with Diprivan. She was placed in the left lateral decubitus position. EGD: The Pentax videoscope was introduced through the oropharynx and advanced to the second portion of the duodenum under direct visualization. Retroflexion was performed in the stomach. FINDINGS: The esophagus this was normal The stomach this was normal The duodenum this was normal EUS: The Pentax videoscope was introduced through the the oropharynx and advanced to the second portion of the duodenum FINDINGS: A 2 x 2 centimeter hypoechoic mass was noted in the head of the pancreas this had ill-defined borders no vascular invasion was noted no lymphadenopathy FNA was performed this felt soft as the needle was advanced 4 passes were made and good core samples were obtained there was also noted dilated bile duct to about 7 mm the pancreatic duct also appeared to be uniformly dilated all the way to the tail at 3.6 mm the pancreatic body and tail were unremarkable The gallbladder appeared to contain some sludge no obvious stones were seen ESTIMATED BLOOD LOSS: None SPECIMENS REMOVED: Pancreatic head samples COMPLICATIONS: None IMPRESSION: Ill-defined pancreatic head mass status post FNA PLAN: Await biopsies Continue with current supportive care James Gutiérrez MD Apr 12, 2016 14:52
[2016-04-12] MEDS ORDERED: DO NOT ADM ANY ANTICOAGULANT DRUGS XX PRN (15:04)
[2016-04-12] MEDS: PANTOPRAZOLE SODIUM 40 MG VIAL IV PUSH SCH (16:32)
[2016-04-12] MEDS: ENOXAPARIN SODIUM 40 MG/0.4 ML SYRINGE SQ SCH (20:36)
[2016-04-13] VITALS (7 sets, daily range): BP systolic 120–148; BP diastolic 65–77; PULSE 64–88; RESP 16–18; TEMP 96.9–98.1; O2SAT 94–98
[2016-04-13] MEDS: SODIUM CHLOR 0.9% 1000 ML INJ 1,000 ML IV SCH ×3 (03:24→19:26)
[2016-04-13 08:01] LABS: MEAN CELL VOLUME 91.4 FL (80.0-100.0); MEAN CORPUSCULAR HEMOGLOBIN 31.1 PG (27.0-34.0); MEAN CORPUSCULAR HGB CONC 34.1 % (32.0-36.0); PLATELET COUNT 214 TH/MM3 (150-450); RED BLOOD COUNT 3.83 MIL/MM3 (4.00-5.30); RED CELL DISTRIBUTION WIDTH 13.3 % (11.6-17.2); REVIEW FLAG FINAL; WHITE BLOOD COUNT 5.5 TH/MM3 (4.0-11.0)
[2016-04-13 08:40] LABS: ALT (GPT) 284 U/L (10-53); ANION GAP 9 MEQ/L (5-15); AST (GOT) 158 U/L (15-37); BICARBONATE 27.5 MEQ/L (21.0-32.0); BLOOD UREA NITROGEN 4 MG/DL (7-18); CHLORIDE 111 MEQ/L (98-107); POTASSIUM 3.4 MEQ/L (3.5-5.1); SODIUM (NA) 147 MEQ/L (136-145)
[2016-04-13 08:45] LABS: ALKALINE PHOSPHATASE 523 U/L (45-117); TOTAL BILIRUBIN ADULT 1.8 MG/DL (0.2-1.0)
[2016-04-13] MEDS: LOSARTAN 50 MG TAB PO SCH (09:11)
[2016-04-13] MEDS: FAMOTIDINE 20 MG/2 ML VIAL IV PUSH SCH ×2 (09:11→19:25)
[2016-04-13] MEDS: cefTRIAXone INJ 1,000 MG in SODIUM CHLORIDE 0.9% INJ 100 ML IV SCH (09:12)
[2016-04-13] MEDS: SODIUM CHLORIDE 0.9% FLUSH 5 ML FLUSH IV SCH ×2 (09:12→19:25)
--- NOTE | 2016-04-13 11:46 | HHI.GIFU ---
Subjective Remarks Resting in bed. Denies any nausea, vomiting abdominal pain. Feeling well. States she had the full liquid diet and did not have any pain after this. Objective Vitals I&O Vital Signs Date Time Temp Pulse Resp B/P Pulse Ox O2 Delivery O2 Flow Rate FiO2 04/13/16 09:48 98 21 04/13/16 08:00 97.9 64 16 121/68 96 04/13/16 04:00 97.5 73 18 131/69 96 04/13/16 00:00 96.9 68 18 120/65 94 04/12/16 20:57 94 21 04/12/16 20:00 96.8 70 18 139/73 92 04/12/16 15:55 95.9 74 17 157/73 95 04/12/16 15:30 97.8 65 14 166/80 95 Room Air 04/12/16 15:15 63 12 158/81 97 04/12/16 15:07 97.8 74 14 143/75 99 Nasal Cannula 2 04/12/16 15:07 97.8 74 12 143/75 99 Nasal Cannula 2 04/12/16 11:55 98.3 69 16 131/73 98 I/O 04/12/16 04/12/16 04/12/16 04/13/16 04/13/16 04/13/16 07:00 15:00 23:00 07:00 15:00 23:00 Intake Total 755 ml 0 ml 1400 ml Balance 755 ml 0 ml 1400 ml Intake Oral 0 ml 600 ml IV Total 755 ml Other 800 ml # Voids 2 1 2 1 Laboratory Laboratory Tests Test 04/13/16 06:50 White Blood Count 5.5 Red Blood Count 3.83 Hemoglobin 11.9 Hematocrit 35.0 Mean Corpuscular Volume 91.4 Mean Corpuscular Hemoglobin 31.1 Mean Corpuscular Hemoglobin 34.1 Concent Red Cell Distribution Width 13.3 Platelet Count 214 Mean Platelet Volume 9.2 Sodium Level 147 Potassium Level 3.4 Chloride Level 111 Carbon Dioxide Level 27.5 Anion Gap 9 Blood Urea Nitrogen 4 Creatinine 0.63 Random Glucose 98 Calcium Level 8.3 Total Bilirubin 1.8 Aspartate Amino Transf 158 (AST/SGOT) Alanine Aminotransferase 284 (ALT/SGPT) Alkaline Phosphatase 523 Total Protein 5.5 Albumin 2.9 Lipase 55114 Date/Time Procedure Status Source Growth 04/09/16 19:00 Urine Culture - Final Complete Urine Clean Catch 10-50,000 CFU/ML MIXED GRAM POSITIVE ... Imaging Last Impressions Abdomen/Pelvis CT 04/09/162025 Signed Impressions: Service Date/Time: Saturday, April 09, 2016 20:52 - CONCLUSION: 1. 2.8 cm mass at the head of the pancreas with associated dilatation of the pancreatic duct, intrahepatic biliary tree and common bile duct. This is concerning for pancreatic carcinoma until proven otherwise. 2. Nonobstructing right upper pole renal calculus. 3. Diverticulosis without diverticulitis. Yemi Daley MD Gall Bladder Ultrasound 04/09/16 0000 Signed Impressions: Service Date/Time: Saturday, April 09, 2016 19:05 - CONCLUSION: 1. Mild pancreatic and common bile duct dilatation. 2. Gallbladder sludge without wall thickening or pericholecystic fluid. Yemi Daley MD Physical Exam HEENT: Normocephalic; atraumatic; no jaundice. CHEST: CTA CARDIAC: RRR ABDOMEN: Soft, nondistended, nontender; no hepatosplenomegaly; bowel sounds are present in all four quadrants. EXTREMITIES: No clubbing, cyanosis, or edema. SKIN: Normal; no rash; no jaundice. COMMISSARY WORKER: No focal deficits; alert and oriented times three. Assessment and Plan Plan ASSESSMENT: - Acute pancreatitis, 1st episode. Abdomen/Pelvis CT (04/09/16)----> 1. 2.8 cm mass at the head of the pancreas with associated dilatation of the pancreatic duct, intrahepatic biliary tree and common bile duct. This is concerning for pancreatic carcinoma until proven otherwise. 2. Nonobstructing right upper pole renal calculus. 3. Diverticulosis without diverticulitis. Gall Bladder Ultrasound (04/09/16)---> 1. Mild pancreatic and common bile duct dilatation. 2. Gallbladder sludge without wall thickening or pericholecystic fluid. No new medications. No ETOH use. No family hx. No hx of GB issues. S/P EUS with possible FNA (04/13/16)-----> The esophagus this was normal, The stomach this was normal, The duodenum this was normal, EUS---> a 2 x 2 centimeter hypoechoic mass was noted in the head of the pancreas this had ill-defined borders no vascular invasion was noted no lymphadenopathy FNA was performed this felt soft as the needle was advanced 4 passes were made and good core samples were obtained there was also noted dilated bile duct to about 7 mm the pancreatic duct also appeared to be uniformly dilated all the way to the tail at 3.6 mm the pancreatic body and tail were unremarkable. The gallbladder appeared to contain some sludge no obvious stones were seen. Lipase increased to 11,692, although clinically, she is doing well. Plan is for lap. cholecystectomy as outpatient after results from FNA and pancreatitis resolves. - Pancreatic mass. CT with 2.8 cm mass at the head of the pancreas with associated dilatation of the pancreatic duct, intrahepatic biliary tree and common bile duct, concerning for malignancy. Ca19-9 36.8. S/P EUS with FNA as above. Pathology pending. - Elevated LFTs, T. Bili 1.8, AST 158, ALT 284, Alk Phosph 523. - HTN per primary PLAN: - Full liquids - Await pathology - IVF - PPI - CMP, Lipase in am - Supportive care - Lap. Cholecystectomy as outpatient once pancreatitis resolves and we have results from FNA. - Further recommendations to follow based on results of above - Pt seen and examined by Dr. Kennedy and myself and this note is written on his behalf Mey Jacques Apr 13, 2016 11:46
[2016-04-13] MEDS ORDERED: POTASSIUM CHLORIDE 25 MEQ EFFERVESCENT TAB PO ONE (14:15)
--- NOTE | 2016-04-13 14:35 | HHI.PR ---
Subjective Interval History Alert, oriented, denies complaints, anxious upon the biopsy report Review of Systems Constitutional Constitutional Remarks 10 systems reviewed otherwise negative Vitals/Results Intake & Output 04/12/16 04/12/16 04/13/16 15:00 23:00 07:00 Intake Total 0 ml 1400 ml Balance 0 ml 1400 ml Intake Oral 0 ml 600 ml Other 800 ml # Voids 1 2 1 Vital Signs Vital Signs Date Time Temp Pulse Resp B/P Pulse Ox O2 Delivery O2 Flow Rate FiO2 04/13/16 12:00 98.1 66 18 136/69 95 04/13/16 09:48 98 21 04/13/16 08:00 97.9 64 16 121/68 96 04/13/16 04:00 97.5 73 18 131/69 96 04/13/16 00:00 96.9 68 18 120/65 94 04/12/16 20:57 94 21 04/12/16 20:00 96.8 70 18 139/73 92 04/12/16 15:55 95.9 74 17 157/73 95 04/12/16 15:30 97.8 65 14 166/80 95 Room Air 04/12/16 15:15 63 12 158/81 97 04/12/16 15:07 97.8 74 14 143/75 99 Nasal Cannula 2 04/12/16 15:07 97.8 74 12 143/75 99 Nasal Cannula 2 CBC/BMP: 04/13/16 0650 04/13/16 0650 Lab Results Laboratory Tests Test 04/13/16 06:50 White Blood Count 5.5 TH/MM3 Red Blood Count 3.83 MIL/MM3 Hemoglobin 11.9 GM/DL Hematocrit 35.0 % Mean Corpuscular Volume 91.4 FL Mean Corpuscular Hemoglobin 31.1 PG Mean Corpuscular Hemoglobin 34.1 % Concent Red Cell Distribution Width 13.3 % Platelet Count 214 TH/MM3 Mean Platelet Volume 9.2 FL Sodium Level 147 MEQ/L Potassium Level 3.4 MEQ/L Chloride Level 111 MEQ/L Carbon Dioxide Level 27.5 MEQ/L Anion Gap 9 MEQ/L Blood Urea Nitrogen 4 MG/DL Creatinine 0.63 MG/DL Random Glucose 98 MG/DL Calcium Level 8.3 MG/DL Total Bilirubin 1.8 MG/DL Aspartate Amino Transf 158 U/L (AST/SGOT) Alanine Aminotransferase 284 U/L (ALT/SGPT) Alkaline Phosphatase 523 U/L Total Protein 5.5 GM/DL Albumin 2.9 GM/DL Lipase 80864 U/L Physical Exam General General Appearance: Well Developed, Well Nourished, No Acute Distress, Comfortable Eyes Eye Exam: Pupils Equal, Pupils Reactive Ears & Nose Ears & Nose Exam: Nasal Mucosa [place] Throat Throat Exam: Oral Mucosa [place] & Moist Neck Neck Exam: Neck Supple, Trachea Midline Pulmonary Resp Exam: Clear Bilaterally, No Distress Cardiology CV Exam: Regular, Good Perfusion Gastrointestinal/Abdomen GI Exam: Soft, Non-Tender, Bowel Sounds Present, Non-Distended Musculoskeletal MS Exam: Normal Tone Integumentary Skin Exam: Warm, Dry Extremeties Extremities Exam: No Edema, Pedal Pulses Palpable Neurologic Neuro Exam: Alert, Awake, Oriented, Speech Clear, Moving All Extremities, No Focal Deficits Psychiatric Psych Exam: Appropriate Responses VTE Prophylaxis VTE Prophylaxis Device: SCDs PUD Prophylasis PUD Prophylaxis: Protonix Assessment/Plan Problem List: (1) Pancreatitis (2) UTI (urinary tract infection) (3) HTN (hypertension) (4) Elevated LFTs Assessment/Plan Assessment Acute pancreatitis, etiology unclear 2 cm Ill-defined mass at the head of the pancreas, status post needle biopsy on 04/12/16 via endoscopic ultrasound Gallbladder disease Elevated liver enzymes Elevated lipase Hypokalemia Pyuria, so far urine culture is negative Management Full liquid diet Replace potassium Follow lipase Follow liver enzymes GI and general surgery following Interval for outpatient cholecystectomy Follow up pathology reports Stop antibiotics Discussed with patient Discussed with nurse Problem Qualifiers (1) Pancreatitis: Qualified Code: K85.10 - Acute biliary pancreatitis without infection or necrosis (2) UTI (urinary tract infection): Qualified Code: N39.0 - Urinary tract infection without hematuria, site unspecified (3) HTN (hypertension): Qualified Code: I10 - Essential hypertension Luis Angel Meyer MD Apr 13, 2016 14:35
[2016-04-13] MEDS: PANTOPRAZOLE SODIUM 40 MG VIAL IV PUSH SCH (14:51)
[2016-04-13] MEDS: ENOXAPARIN SODIUM 40 MG/0.4 ML SYRINGE SQ SCH (19:25)
[2016-04-14] VITALS: BP 139/69; PULSE 67; RESP 16; TEMP 96.9; O2SAT 97
[2016-04-14] MEDS: SODIUM CHLOR 0.9% 1000 ML INJ 1,000 ML IV SCH (03:56)
[2016-04-14 04:00] VITALS: BP 144/84; PULSE 64; RESP 16; O2SAT 96
[2016-04-14 08:00] VITALS: BP 163/89; PULSE 78; RESP 18; TEMP 97.1; O2SAT 97
[2016-04-14] MEDS: LOSARTAN 50 MG TAB PO SCH (08:34)
[2016-04-14] MEDS: cefTRIAXone INJ 1,000 MG in SODIUM CHLORIDE 0.9% INJ 100 ML IV SCH (08:35)
[2016-04-14] MEDS: SODIUM CHLORIDE 0.9% FLUSH 5 ML FLUSH IV SCH (08:35)
[2016-04-14] MEDS: FAMOTIDINE 20 MG/2 ML VIAL IV PUSH SCH (08:54)
[2016-04-14 09:59] LABS: INDIRECT BILIRUBIN 0.8 MG/DL (0.0-0.8); TOTAL BILIRUBIN ADULT 1.5 MG/DL (0.2-1.0)
--- NOTE | 2016-04-14 11:29 | HHI.GIFU ---
Subjective Remarks Resting in chair. Denies any abdominal pain. No n/v. Tolerating full liquids. Would like to go home today. Objective Vitals I&O Vital Signs Date Time Temp Pulse Resp B/P Pulse Ox O2 Delivery O2 Flow Rate FiO2 04/14/16 08:00 97.1 78 18 163/89 97 04/14/16 04:00 64 16 144/84 96 04/14/16 00:00 96.9 67 16 139/69 97 04/13/16 20:00 97.6 73 17 142/77 97 04/13/16 16:00 97.4 88 18 148/77 97 04/13/16 12:00 98.1 66 18 136/69 95 I/O 04/13/16 04/13/16 04/13/16 04/14/16 04/14/16 04/14/16 07:00 15:00 23:00 07:00 15:00 23:00 Intake Total 1080 ml 2066 ml 913 ml 240 ml Balance 1080 ml 2066 ml 913 ml 240 ml Intake Oral 1080 ml 240 ml IV Total 2066 ml 913 ml # Voids 1 2 Laboratory Laboratory Tests Test 04/14/16 08:20 Total Bilirubin 1.5 Direct Bilirubin 0.7 Indirect Bilirubin 0.8 Aspartate Amino Transf 131 (AST/SGOT) Alanine Aminotransferase 318 (ALT/SGPT) Alkaline Phosphatase 638 Total Protein 6.6 Albumin 3.4 Lipase 998 Date/Time Procedure Status Source Growth 04/09/16 19:00 Urine Culture - Final Complete Urine Clean Catch 10-50,000 CFU/ML MIXED GRAM POSITIVE ... Imaging Last Impressions Abdomen/Pelvis CT 04/09/162025 Signed Impressions: Service Date/Time: Saturday, April 09, 2016 20:52 - CONCLUSION: 1. 2.8 cm mass at the head of the pancreas with associated dilatation of the pancreatic duct, intrahepatic biliary tree and common bile duct. This is concerning for pancreatic carcinoma until proven otherwise. 2. Nonobstructing right upper pole renal calculus. 3. Diverticulosis without diverticulitis. Yemi Daley MD Gall Bladder Ultrasound 04/09/16 0000 Signed Impressions: Service Date/Time: Saturday, April 09, 2016 19:05 - CONCLUSION: 1. Mild pancreatic and common bile duct dilatation. 2. Gallbladder sludge without wall thickening or pericholecystic fluid. Yemi Daley MD Physical Exam HEENT: Normocephalic; atraumatic; no jaundice. CHEST: CTA CARDIAC: RRR ABDOMEN: Soft, nondistended, nontender; no hepatosplenomegaly; bowel sounds are present in all four quadrants. EXTREMITIES: No clubbing, cyanosis, or edema. SKIN: Normal; no rash; no jaundice. [employer] MAINTENANCE: No focal deficits; alert and oriented times three. Assessment and Plan Plan ASSESSMENT: - Acute pancreatitis, 1st episode. Abdomen/Pelvis CT (04/09/16)----> 1. 2.8 cm mass at the head of the pancreas with associated dilatation of the pancreatic duct, intrahepatic biliary tree and common bile duct. This is concerning for pancreatic carcinoma until proven otherwise. 2. Nonobstructing right upper pole renal calculus. 3. Diverticulosis without diverticulitis. Gall Bladder Ultrasound (04/09/16)---> 1. Mild pancreatic and common bile duct dilatation. 2. Gallbladder sludge without wall thickening or pericholecystic fluid. No new medications. No ETOH use. No family hx. No hx of GB issues. S/P EUS with possible FNA (04/13/16)-----> The esophagus this was normal, The stomach this was normal, The duodenum this was normal, EUS---> a 2 x 2 centimeter hypoechoic mass was noted in the head of the pancreas this had ill-defined borders no vascular invasion was noted no lymphadenopathy FNA was performed this felt soft as the needle was advanced 4 passes were made and good core samples were obtained there was also noted dilated bile duct to about 7 mm the pancreatic duct also appeared to be uniformly dilated all the way to the tail at 3.6 mm the pancreatic body and tail were unremarkable. The gallbladder appeared to contain some sludge no obvious stones were seen. Lipase increased to 11,692, although clinically, she is doing well. Plan is for lap. cholecystectomy as outpatient after results from FNA and pancreatitis resolves. Pathology pending. - Pancreatic mass. CT with 2.8 cm mass at the head of the pancreas with associated dilatation of the pancreatic duct, intrahepatic biliary tree and common bile duct, concerning for malignancy. Ca19-9 36.8. S/P EUS with FNA as above. Pathology pending. - Elevated LFTs, T. Bili 1.5, AST 131, ALT 318, Alk Phosph 638. - HTN per primary PLAN: - Okay to d/c home. - Lowfat diet - Await pathology- spoke to pathology, will not be available until next week - Okay to return to work on Sunday - Lap. Cholecystectomy as outpatient once pancreatitis resolves and we have results from FNA. - Further recommendations to follow based on results of above - Pt seen and examined by Dr. Guzmán and myself and this note is written on his behalf Mey Jacques Apr 14, 2016 11:29
[2016-04-14 12:00] VITALS: BP 145/65; PULSE 62; RESP 18; TEMP 96.4; O2SAT 97
--- NOTE | 2016-04-14 13:51 | HHI.GIFU ---
Subjective Remarks Resting in chair. Feeling well. Hoping to go home today. No n/v. Tolerating full liquids. No abdominal pain. (Mey Jacques) Objective Vitals I&O Vital Signs Date Time Temp Pulse Resp B/P Pulse Ox O2 Delivery O2 Flow Rate FiO2 04/14/16 12:00 96.4 62 18 145/65 97 04/14/16 08:00 97.1 78 18 163/89 97 04/14/16 04:00 64 16 144/84 96 04/14/16 00:00 96.9 67 16 139/69 97 04/13/16 20:00 97.6 73 17 142/77 97 04/13/16 16:00 97.4 88 18 148/77 97 I/O 04/13/16 04/13/16 04/13/16 04/14/16 04/14/16 04/14/16 07:00 15:00 23:00 07:00 15:00 23:00 Intake Total 1080 ml 2066 ml 913 ml 480 ml Balance 1080 ml 2066 ml 913 ml 480 ml Intake Oral 1080 ml 480 ml IV Total 2066 ml 913 ml # Voids 1 2 1 Laboratory Laboratory Tests Test 04/14/16 08:20 Total Bilirubin 1.5 Direct Bilirubin 0.7 Indirect Bilirubin 0.8 Aspartate Amino Transf 131 (AST/SGOT) Alanine Aminotransferase 318 (ALT/SGPT) Alkaline Phosphatase 638 Total Protein 6.6 Albumin 3.4 Lipase 998 Date/Time Procedure Status Source Growth 04/09/16 19:00 Urine Culture - Final Complete Urine Clean Catch 10-50,000 CFU/ML MIXED GRAM POSITIVE ... Imaging Last Impressions Abdomen/Pelvis CT 04/09/162025 Signed Impressions: Service Date/Time: Saturday, April 09, 2016 20:52 - CONCLUSION: 1. 2.8 cm mass at the head of the pancreas with associated dilatation of the pancreatic duct, intrahepatic biliary tree and common bile duct. This is concerning for pancreatic carcinoma until proven otherwise. 2. Nonobstructing right upper pole renal calculus. 3. Diverticulosis without diverticulitis. Yemi Daley MD Gall Bladder Ultrasound 04/09/16 0000 Signed Impressions: Service Date/Time: Saturday, April 09, 2016 19:05 - CONCLUSION: 1. Mild pancreatic and common bile duct dilatation. 2. Gallbladder sludge without wall thickening or pericholecystic fluid. Yemi Daley MD Physical Exam HEENT: Normocephalic; atraumatic; no jaundice. CHEST: CTA CARDIAC: RRR ABDOMEN: Soft, nondistended, nontender; no hepatosplenomegaly; bowel sounds are present in all four quadrants. EXTREMITIES: No clubbing, cyanosis, or edema. SKIN: Normal; no rash; no jaundice. THREAD PULLER: No focal deficits; alert and oriented times three. (Mey JacquesP) Assessment and Plan Plan ASSESSMENT: - Acute pancreatitis, 1st episode. Abdomen/Pelvis CT (04/09/16)----> 1. 2.8 cm mass at the head of the pancreas with associated dilatation of the pancreatic duct, intrahepatic biliary tree and common bile duct. This is concerning for pancreatic carcinoma until proven otherwise. 2. Nonobstructing right upper pole renal calculus. 3. Diverticulosis without diverticulitis. Gall Bladder Ultrasound (04/09/16)---> 1. Mild pancreatic and common bile duct dilatation. 2. Gallbladder sludge without wall thickening or pericholecystic fluid. No new medications. No ETOH use. No family hx. No hx of GB issues. S/P EUS with possible FNA (04/13/16)-----> The esophagus this was normal, The stomach this was normal, The duodenum this was normal, EUS---> a 2 x 2 centimeter hypoechoic mass was noted in the head of the pancreas this had ill-defined borders no vascular invasion was noted no lymphadenopathy FNA was performed this felt soft as the needle was advanced 4 passes were made and good core samples were obtained there was also noted dilated bile duct to about 7 mm the pancreatic duct also appeared to be uniformly dilated all the way to the tail at 3.6 mm the pancreatic body and tail were unremarkable. The gallbladder appeared to contain some sludge no obvious stones were seen. Lipase improving 998. Plan is for lap. cholecystectomy as outpatient after results from FNA and pancreatitis resolves. Pathology pending. - Pancreatic mass. CT with 2.8 cm mass at the head of the pancreas with associated dilatation of the pancreatic duct, intrahepatic biliary tree and common bile duct, concerning for malignancy. Ca19-9 36.8. S/P EUS with FNA as above. Pathology pending. Called pathology- was sent out, will likely will not be back until early next week, ? Sunday. - Elevated LFTs, T. Bili 1.5, AST 131, ALT 318, Alk Phosph 638. - HTN per primary PLAN: - Okay to d/c home. - Lowfat diet - Await pathology- spoke to pathology, will not be available until next week - Okay to return to work on Sunday - Lap. Cholecystectomy as outpatient once pancreatitis resolves and we have results from FNA. - Further recommendations to follow based on results of above - Pt seen and examined by Dr. Guzmán and myself and this note is written on his behalf (Mey Jacques) Physician Comments Seen and examined by [facility], going home today. Needs fu with gi in 02 weeks to fu on FNA results. (Ganga Guzmán MD) Mey Jacques Apr 14, 2016 13:51 Ganga Guzmán MD Apr 14, 2016 20:06
--- NOTE | 2016-04-14 15:25 | HHI.PR ---
Subjective Interval History alert, oriented, no c/o Review of Systems Constitutional Constitutional Remarks 10 systems reviewed otherwise negative Vitals/Results Intake & Output 04/13/16 04/13/16 04/14/16 15:00 23:00 07:00 Intake Total 1080 ml 2066 ml 913 ml Balance 1080 ml 2066 ml 913 ml Intake Oral 1080 ml IV Total 2066 ml 913 ml # Voids 2 Vital Signs Vital Signs Date Time Temp Pulse Resp B/P Pulse Ox O2 Delivery O2 Flow Rate FiO2 04/14/16 12:00 96.4 62 18 145/65 97 04/14/16 08:00 97.1 78 18 163/89 97 04/14/16 04:00 64 16 144/84 96 04/14/16 00:00 96.9 67 16 139/69 97 04/13/16 20:00 97.6 73 17 142/77 97 04/13/16 16:00 97.4 88 18 148/77 97 CBC/BMP: 04/13/16 0650 04/13/16 0650 Lab Results Laboratory Tests Test 04/14/16 08:20 Total Bilirubin 1.5 MG/DL Direct Bilirubin 0.7 MG/DL Indirect Bilirubin 0.8 MG/DL Aspartate Amino Transf 131 U/L (AST/SGOT) Alanine Aminotransferase 318 U/L (ALT/SGPT) Alkaline Phosphatase 638 U/L Total Protein 6.6 GM/DL Albumin 3.4 GM/DL Lipase 998 U/L Physical Exam General General Appearance: Well Developed, Well Nourished, No Acute Distress, Comfortable Eyes Eye Exam: Pupils Equal, Pupils Reactive Ears & Nose Ears & Nose Exam: Nasal Mucosa Roebling Throat Throat Exam: Oral Mucosa Roebling & Moist Neck Neck Exam: Neck Supple, Trachea Midline Pulmonary Resp Exam: Clear Bilaterally, No Distress Cardiology CV Exam: Regular, Good Perfusion Gastrointestinal/Abdomen GI Exam: Soft, Non-Tender, Bowel Sounds Present, Non-Distended Musculoskeletal MS Exam: Normal Tone Integumentary Skin Exam: Warm, Dry Extremeties Extremities Exam: No Edema, Pedal Pulses Palpable Neurologic Neuro Exam: Alert, Awake, Oriented, Speech Clear, Moving All Extremities, No Focal Deficits Psychiatric Psych Exam: Appropriate Responses VTE Prophylaxis VTE Prophylaxis Device: SCDs PUD Prophylasis PUD Prophylaxis: Protonix Assessment/Plan Problem List: (1) Pancreatitis (2) UTI (urinary tract infection) (3) HTN (hypertension) (4) Elevated LFTs Assessment/Plan Assessment Acute pancreatitis, etiology unclear 2 cm Ill-defined mass at the head of the pancreas, status post needle biopsy on 04/12/16 via endoscopic ultrasound Gallbladder disease Elevated liver enzymes, improved Elevated lipase, improved then worse after EUS Hypokalemia Pyuria, urine culture is negative Management low fat diet Replaced potassium Follow lipase Follow liver enzymes GI and general surgery following Interval for outpatient cholecystectomy Follow up pathology reports d/c home today Discussed with patient Discussed with nurse d/w GI Discharge Minutes: 40 Problem Qualifiers (1) Pancreatitis: Qualified Code: K85.10 - Acute biliary pancreatitis without infection or necrosis (2) UTI (urinary tract infection): Qualified Code: N39.0 - Urinary tract infection without hematuria, site unspecified (3) HTN (hypertension): Qualified Code: I10 - Essential hypertension Luis Angel Meyer MD Apr 14, 2016 15:25
[2016-04-14] MEDS ORDERED: COZA50TA PO (15:37)
[2016-04-14] MEDS ORDERED: PANT20 PO (15:37)
--- NOTE | 2016-06-18 17:47 | HHI.DS ---
Discharge Summary Admission Date Apr 09, 2016 at 20:47 Discharge Date: Apr 14, 2016 Admitting Diagnosis Acute Nonalcoholic Pancreatitis (1) Pancreatic mass (2) Pancreatitis (3) Nausea & vomiting (4) UTI (urinary tract infection) (5) HTN (hypertension) (6) Elevated LFTs Procedures EGD followed by EUS with fine-needle aspiration 04/22/16 Imaging Last Impressions Abdomen/Pelvis CT 04/09/162025 Signed Impressions: Service Date/Time: Saturday, April 09, 2016 20:52 - CONCLUSION: 1. 2.8 cm mass at the head of the pancreas with associated dilatation of the pancreatic duct, intrahepatic biliary tree and common bile duct. This is concerning for pancreatic carcinoma until proven otherwise. 2. Nonobstructing right upper pole renal calculus. 3. Diverticulosis without diverticulitis. Yemi Daley MD Gall Bladder Ultrasound 04/09/16 0000 Signed Impressions: Service Date/Time: Saturday, April 09, 2016 19:05 - CONCLUSION: 1. Mild pancreatic and common bile duct dilatation. 2. Gallbladder sludge without wall thickening or pericholecystic fluid. Yemi Daley MD Hospital Course This is a pleasant 60-year-old female who is generally in good health, history of hypertension. Patient presented to the emergency room for evaluation of epigastric pain, nausea vomiting. According to the patient, she's had intermittent epigastric discomfort that is dull and nagging for the last 3 weeks. Over the last couple days she's had nausea and vomiting after meals, sometimes it happens after 1 hour. Denies any fever, no chills. No hematemesis. Bowel movements have been regular, no blood has been noted. Has been trying to lose weight on purpose. She denies any other symptoms, no chest pain, no shortness of breath. She has seen gastroenterology in the past for bloating and had EGD and colonoscopy per Dr. Heath that was unremarkable, possibly some diverticulosis. Does not drink any excessive alcohol. Had prior left oophorectomy. Patient was evaluated in the emergency room, she was noted with elevated LFTs, AST 318, a T4 97, alkaline phosphatase and 60. Lipase was 6053. A CT of the abdomen was completed showing a 2.8 cm mass at the head of pancreas with associated dilatation of the pancreatic duct, intrahepatic biliary tree and common bile duct. This was concerning for pancreatic carcinoma. There was also nonobstructive right upper pole renal calculus. Last Impressions Abdomen/Pelvis CT 04/09/162025 Signed Impressions: Service Date/Time: Saturday, April 09, 2016 20:52 - CONCLUSION: 1. 2.8 cm mass at the head of the pancreas with associated dilatation of the pancreatic duct, intrahepatic biliary tree and common bile duct. This is concerning for pancreatic carcinoma until proven otherwise. 2. Nonobstructing right upper pole renal calculus. 3. Diverticulosis without diverticulitis. Yemi Daley MD Gall Bladder Ultrasound 04/09/16 0000 Signed Impressions: Service Date/Time: Saturday, April 09, 2016 19:05 - CONCLUSION: 1. Mild pancreatic and common bile duct dilatation. 2. Gallbladder sludge without wall thickening or pericholecystic fluid. Yemi Daley MD Was also noted positive for UTI. Patient was given empiric antibiotics. Request was made for admission. Patient indicated abdominal discomfort was improved since admission. No further nausea vomiting. Patient denied any history of malignancy on her family. 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 Patient was admitted for further evaluation and treatment: (1) Pancreatitis (2) UTI (urinary tract infection) (3) HTN (hypertension) (4) Elevated LFTs During the course of the hospitalization, the following took place: 60-year-old female admitted with 3 weeks of epigastric discomfort associated with nausea vomiting, CT findings of a 2.8 cm pancreatic mass. Also with findings of pancreatitis, elevated lipase as well as elevated liver enzymes. Noted with dilatation of pancreatic duct, intrahepatic biliary tree and couple bile duct. No ETOH abuse Acute pancreatitis Nothing by mouth status initially, then diet adv as she tolerated. Continue with IV fluids Pain management -CEA -19-9 36.8 labs reviewed- LFTs coming down slowly Appreciate GI input, initially recommended ERCP and poss. stent placement however cancelled since numbers coming down -EUS with FNA was recommended -Pt. had EGD followed by EUS with fine-needle aspiration, bx results were not going to be ready until the week after. Pt. agreed to follow up on results as OP S/P EUS with possible FNA (04/13/16)-----> The esophagus this was normal, The stomach this was normal, The duodenum this was normal, EUS---> a 2 x 2 centimeter hypoechoic mass was noted in the head of the pancreas this had ill-defined borders no vascular invasion was noted no lymphadenopathy FNA was performed this felt soft as the needle was advanced 4 passes were made and good core samples were obtained there was also noted dilated bile duct to about 7 mm the pancreatic duct also appeared to be uniformly dilated all the way to the tail at 3.6 mm the pancreatic body and tail were unremarkable. The gallbladder appeared to contain some sludge no obvious stones were seen. -She was have f/u as OP with gen surgery for cholecystectomy when pancreatitis resolved. For UTI, culture results noted Continue with antibiotics, changed to Rocephin 1 g IV daily, culture mixed GPC -no abx at discharge indicated. Hypertension, stable Continued home medications Vasotec when necessary for systolic greater than 160 diastolic greater than 90 SCDs for DVT prophylaxis PPI for GI Prophylaxis Pt. stable, lipase trending down, abd. pain improved. Tolerated diet Discharged home with instructions to follow up as OP with GI for bx results Pt Condition on Discharge: Stable Discharge Disposition: Discharge Home Discharge Instructions DIET: Follow Instructions for: Low Fat Diet, Low Protein Diet Activities you can perform: Weight Bearing as Lino Follow up Referrals: Gastroenterology - 2 Weeks @ [facility] New Medications: Pantoprazole (Protonix) 20 Mg Tab 20 MG PO DAILY Reflux #30 Ref 0 TAB Losartan (Cozaar) 50 Mg Tab 100 MG PO DAILY Blood Pressure Management #30 TAB Yvonne Sepulveda June 18, 2016 17:47
== END 2016-04-14 16:09 | disposition home or self-care (01) | DRG 439 ==
LOC: NEPC 18:06 → NEDA 20:47 → NEPHCDU 22:36 → HOCA 04-11 18:10
PROVIDERS: ADMIT Specialist; ATTEND Specialist
PROC: 0FBG4ZX Excision of Pancreas, Percutaneous Endoscopic Approach, Diagnostic (ICD-10-PCS; 2016-04-12)
PROC: BF47ZZZ Ultrasonography of Pancreas (ICD-10-PCS; 2016-04-12)
PROC: 0DJ08ZZ Inspection of Upper Intestinal Tract, Via Natural or Artificial Opening Endoscopic (ICD-10-PCS; principal; 2016-04-12 13:25)
DX: K85.90 Acute pancreatitis without necrosis or infection, unspecified (principal); N39.0 Urinary tract infection, site not specified; I10 Essential (primary) hypertension; N20.0 Calculus of kidney; K57.90 Diverticulosis of intestine, part unspecified, without perforation or abscess without bleeding; E87.6 Hypokalemia; F17.200 Nicotine dependence, unspecified, uncomplicated
CPT/HCPCS: 43242; 74177; 76705; 80048; 80053; 80076; 81001; 83690; 84478; 85025; 85027; 86301; 87086; 88341; 88342; 93005; 96361; 96374; 96375; C9113; J0295; J0696; J1650; J2405; J2550; J7030; Q9967

== ENCOUNTER → 2017-03-16 | Outpatient (CLI) | payer OTHER ==
[~2017-03-16] MED LIST: COZA50TA PO; PANT20 PO
== END ==
LOC: ELAB 09:30
PROVIDERS: ATTEND Internal Medicine Hematology & Oncology
DX: C25.9 Malignant neoplasm of pancreas, unspecified (principal)
CPT/HCPCS: 36415; 86301

== ENCOUNTER → 2017-06-25 | Outpatient (CLI) | payer OTHER | LOC: ELAB 08:07 | PROVIDERS: ATTEND Internal Medicine | DX: C25.9 Malignant neoplasm of pancreas, unspecified (principal) | CPT/HCPCS: 36415; 86301 ==

== ENCOUNTER → 2017-06-29 | Outpatient (CLI) | payer OTHER ==
[2017-06-30 01:12] LABS: EBV VCA IgM Negative (Negative)
[2017-07-01 23:51] LABS: PARVOVIRUS B19 IGG 2.8; PARVOVIRUS B19 IGM 0.2
[2017-07-04 23:51] LABS: HERPES 6 IGG 1:10; HERPES 6 IGM <1:20; HERPES INTERPRETATION PAST INFECTION (NON-REACTVE)
== END ==
LOC: ELAB 08:41
PROVIDERS: ATTEND Otolaryngology
DX: R53.82 Chronic fatigue, unspecified (principal); B27.90 Infectious mononucleosis, unspecified without complication; M79.7 Fibromyalgia; B97.89 Other viral agents as the cause of diseases classified elsewhere; E55.9 Vitamin D deficiency, unspecified
CPT/HCPCS: 36415; 82306; 86644; 86645; 86664; 86665; 86747; 86790